=== PATIENT | female | born 1985 | race Two or more races ===

== ENCOUNTER 2018-02-14 19:08 | Emergency (ER) | payer OTHER ==
[2018-02-14] MEDS ORDERED: VENLAFAXINE 37.5 MG TABLET PO STA (19:36)
[2018-02-14] MEDS ORDERED: SODIUM CHLORIDE 0.9% 1,000 ML IV ONE (19:36)
--- NOTE | 2018-02-14 19:40 | ED Physician Documentation ---
History of Present Illness - Stated complaint Stated Complaint: ANXIETY - Chief complaint Chief Complaint: MHE - History obtained from History obtained from: Patient, Family - History of Present Illness Timing: Today Pain level max: 0 Pain level now: 0 Improved by: nothing Worsened by: nothing - Additonal information Additional information: Patient is a 32-year-old female with a long history of anxiety. She states that she has been tapering off her Effexor and last had her Effexor 2 days ago. She was on 37.5 mg once a day, unclear if this was the extended release or immediate release. She states that she has been feeling increased anxiety since that ti me. Took clonazepam and Xanax without relief. Has had diarrhea as well. Feels dehydrated. Is having nausea with some vomiting. Took Zofran prior to arrival. She has been using marijuana to help with her anxiety and appetite. She currently has a PCP in [place] but does not have a psychiatrist. Review of Systems Ten Systems: 10 systems reviewed and negative Constitutional: denies: Fever, Chills Ears: denies: Ear pain Nose: denies: Rhinorrhea / runny nose, Congestion Throat: denies: Sore throat Cardiac: denies: Chest pain / pressure Respiratory: denies: Cough GI: denies: Abdominal Pain, Nausea, Vomiting, Diarrhea Skin: denies: Rash Musculoskeletal: denies: Neck pain, Back pain Neurologic: denies: Headache PD PAST MEDICAL HISTORY - Past Medical History Past Medical History: No - Present Medications Home Medications: Ambulatory Orders Medication Instructions Recorded Confirmed Alprazolam [Xanax] 1 mg PO TID PRN 02/14/18 02/14/18 Ondansetron HCl [Zofran] 8 mg PO Q8H PRN 02/14/18 02/14/18 clonazePAM [Clonazepam] 0.5 mg PO BID 02/14/18 02/14/18 - Allergies Allergies/Adverse Reactions: Allergies Allergy/AdvReac Type Severity Reaction Status Date / Time No Known Drug Allergies Allergy Verified 02/14/18 19:19 PD ED PE NORMAL - Vitals Vital signs reviewed: Yes - General General: Alert and oriented X 3, No acute distress - HEENT HEENT: Moist mucous membranes - Neck Neck: Supple, no meningeal sign - Cardiac Cardiac: RRR, Strong equal pulses - Respiratory Respiratory: No respiratory distress, Clear bilaterally - Abdomen Abdomen: Soft, Non tender, Non distended - Back Back: No spinal TTP - Derm Derm: Warm and dry, No rash - Extremities Extremities: No edema - Neuro Neuro: Alert and oriented X 3 - Psych Psych: Other (anxious) Results - Vitals Vitals: Vital Signs - 24 hr 02/14/18 19:11 Temperature 36.8 C Heart Rate 98 Respiratory 22 Rate Blood Pressure 118/62 O2 Saturation 99 Oxygen O2 Source Room air PD MEDICAL DECISION MAKING - ED course Complexity details: reviewed results, re-evaluated patient, considered differential, d/w patient ED course: Patient feels better after Effexor and Ativan. Feels better after IV fluids. Tolerating p.o. without difficulty. We will have her follow-up with her doctor for further care and recommend tele-psychiatry evaluation in the clinic for medication adjustment. We will have her restart her Effexor at home until she sees her doctor. Patient counseled regarding signs and symptoms for which I believe and urgent re-evaluation would be necessary. Patient with good understanding of and agreement to plan and is comfortable going home at this time This document was made in part using voice recognition software. While efforts are made to proofread this document, sound alike and grammatical errors may occur. - Sepsis Event Vital Signs: Vital Signs - 24 hr 02/14/18 19:11 Temperature 36.8 C Heart Rate 98 Respiratory 22 Rate Blood Pressure 118/62 O2 Saturation 99 Oxygen O2 Source Room air Departure - Departure Disposition: 01 Home, Self Care Clinical Impression: Anxiety Condition: Good Instructions: ED Panic Attack Follow-Up: Tha Garcia PA-C [Primary Care Provider] - Within 1 week Comments: Please restart your Effexor at 37.5 mg by mouth daily. Follow-up with your doctor and asked that you be referred to tele-psychiatry in the [facility] for medication adjustment. Return if you worsen
[2018-02-14] MEDS ORDERED: VENLAFAXINE 37.5 MG TABLET PO ONE (19:45)
[2018-02-14 20:04] LABS: HGB - HEMOGLOBIN 13.8 g/dL (12.0-16.0); LYMPHOCYTES % (AUTO) 14.9 %; MEAN CORPUSCULAR HEMOGLOBIN 30.7 pg (27.0-31.0); MEAN CORPUSCULAR HGB CONC 34.6 g/dL (32.0-36.0); MEAN CORPUSCULAR VOLUME 88.6 fL (81.0-99.0); MEAN PLATELET VOLUME 7.5 fL (7.9-10.8); MONOCYTES # (AUTO) 0.3 10^3/uL (0.0-1.0); MONOCYTES % (AUTO) 4.6 %; NEUTROPHILS # (AUTO) 5.4 10^3/uL (1.5-6.6); NEUTROPHILS % (AUTO) 80.5 %; PLT - PLATELET COUNT 193 10^3/uL (130-450); RED BLOOD COUNT 4.49 10^6/uL (4.20-5.40); RED CELL DISTRIBUTION WIDTH 12.7 % (12.0-15.0); WHITE BLOOD COUNT 6.7 x10^3/uL (4.8-10.8)
[2018-02-14 20:06] LABS: BILIRUBIN,URINE NEGATIVE (NEGATIVE); GLUCOSE, URINE (UA) NEGATIVE (NEGATIVE); KETONES,URINE (UA) NEGATIVE (NEGATIVE); LEUKOCYTE ESTERASE, URINE NEGATIVE (NEGATIVE); NITRITE,URINE NEGATIVE (NEGATIVE); OCCULT BLOOD,URINE SMALL (NEGATIVE); PROTEIN,URINE NEGATIVE (NEGATIVE); UROBILINOGEN,URINE 0.2 (NORMAL) E.U./dL (NORMAL)
[2018-02-14 20:08] LABS: ALBUMIN 4.6 g/dL (3.2-5.5); ALBUMIN/GLOBULIN RATIO 1.4 (1.0-2.2); BILIRUBIN,TOTAL 0.8 mg/dL (0.2-1.0); CALCIUM 9.7 mg/dL (8.5-10.3); CREATININE 0.7 mg/dL (0.4-1.0)
[2018-02-14 20:09] LABS: CLARITY,URINE HAZY (CLEAR); HCG UR QUAL NEGATIVE
[2018-02-14 20:17] LABS: BACTERIA,URINE None Seen /HPF (None Seen); RBC,URINE 0-5 /HPF (0-5); SQUAMOUS EPITHELIAL CELL,UR RARE Squamous (<= Few)
[2018-02-14] MEDS ORDERED: LORazepam 2 MG/ML VIAL IVP STA (20:38)
[2018-02-14] MEDS ORDERED: ONDANSETRON 4 MG/2 ML VIAL IVP STA (21:03)
[2018-02-14 21:35] VITALS: BP 107/61
== END 2018-02-14 21:34 | disposition home or self-care (01) ==
LOC: ED 19:08
DX: F41.9 Anxiety disorder, unspecified (principal); Z79.899 Other long term (current) drug therapy
CPT/HCPCS: 36415; 80053; 81001; 81025; 83690; 85025; 96361; 96374; 96375; 99283; A9270; J2060; 81003; 87086

== ENCOUNTER 2018-03-05 10:16 | Outpatient (CLI) | payer OTHER ==
[2018-03-05 12:51] LABS: HGB - HEMOGLOBIN 13.4 g/dL (12.0-16.0); LYMPHOCYTES # (AUTO) 0.8 10^3/uL (1.5-3.5); LYMPHOCYTES % (AUTO) 14.5 %; MEAN CORPUSCULAR HEMOGLOBIN 30.9 pg (27.0-31.0); MEAN CORPUSCULAR HGB CONC 34.5 g/dL (32.0-36.0); MEAN CORPUSCULAR VOLUME 89.6 fL (81.0-99.0); MEAN PLATELET VOLUME 8.6 fL (7.9-10.8); MONOCYTES # (AUTO) 0.2 10^3/uL (0.0-1.0); MONOCYTES % (AUTO) 4.3 %; NEUTROPHILS # (AUTO) 4.4 10^3/uL (1.5-6.6); NEUTROPHILS % (AUTO) 81.2 %; PLT - PLATELET COUNT 211 10^3/uL (130-450); RED BLOOD COUNT 4.33 10^6/uL (4.20-5.40); RED CELL DISTRIBUTION WIDTH 12.9 % (12.0-15.0); WHITE BLOOD COUNT 5.4 x10^3/uL (4.8-10.8)
[2018-03-05 13:14] LABS: CALCIUM 9.6 mg/dL (8.5-10.3); CREATININE 0.7 mg/dL (0.4-1.0)
== END 2018-03-05 10:17 | disposition home or self-care (01) ==
LOC: LAB.N 10:16
PROVIDERS: ATTEND Physician Assistant Medical
DX: Z86.59 Personal history of other mental and behavioral disorders (principal); F41.1 Generalized anxiety disorder
CPT/HCPCS: 36415; 80048; 84443; 85025

== ENCOUNTER 2019-09-15 14:21 | Outpatient (CLI) | payer OTHER ==
--- NOTE | 2019-09-16 16:43 | Ultrasound Report ---
Reason: ENCOUNTER FOR 1ST TRIMESTER US Procedure Date: 09/15/2019 Accession Number: [id number] / [id number] Procedure: US - OB First Trimester CPT Code: Final Report FULL RESULT: EXAM: FIRST TRIMESTER OBSTETRIC ULTRASOUND (Less than 11 weeks) EXAM DATE: 09/15/2019 03:10 PM. CLINICAL HISTORY: . Dating ultrasound. LMP: 07/19/2019. COMPARISONS: None. TECHNIQUE: Transabdominal and transvaginal ultrasound examination with static image documentation. CLINICAL DATES: EGA 8 weeks 2 days with MARYANNE 04/24/2020 based on LMP. ASSESSMENT: Gestational Sac: Single intrauterine. Mean gestational sac diameter: 41 mm = 9 weeks 4 days. Embryo: CRL (crown-rump length) 23 mm = 9 weeks 0 days. Cardiac activity: 173 beats per minute. Yolk sac: 3 mm. Amniotic fluid: Not accurately assessed at this gestational age. Early placenta: Not visible at this gestational age. Other: No perigestational fluid collection demonstrated. MATERNAL STRUCTURES: Uterus: Anteverted. Unremarkable. Cervix: Closed. Right Ovary/Adnexa: The ovary measures 3.4 x 1.8 x 1.3 cm, volume 4 cc. Unremarkable. Left Ovary/Adnexa: The ovary measures 2.4 x 2.1 x 3.1 cm, volume 7.9 cc. There is a corpus luteum cyst measuring 2.1 x 1.8 x 2.1 cm. Blood flow visualized in left ovary on Doppler. Free Fluid: None. Other: None. IMPRESSION: 1. Single viable intrauterine with ultrasound age 9 weeks 0 days based on crown-rump length. Ultrasound EDC 04/19/2020.. RADIA
== END 2019-09-15 14:22 | disposition home or self-care (01) ==
LOC: DI 14:21
PROVIDERS: ATTEND Midwife
DX: Z34.91 Encounter for supervision of normal pregnancy, unspecified, first trimester (principal)
CPT/HCPCS: 76801; 76817

== ENCOUNTER 2020-04-22 11:41 | Inpatient (IN) | payer OTHER ==
[2020-04-22 13:17] LABS: RUPTURE OF MEMBRANES PLUS POSITIVE (NEGATIVE)
--- NOTE | 2020-04-22 13:24 | HISTORY & PHYSICAL EXAMINATION ---
History of Present Illness - History of Present Illness HPI Comment/Other: CC: wants induction HPI: Care with center midwives, has been maksim painfully for the past 3 days, occuring q1-10min. SVE has been closed and the patient has gotten a few snatches of 15min naps but none otherwise. she is feeling exhausted and requesting augmentation here. 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 No fevers, no cough, no bleeding. Good FM. PMH: obesity, anxiety with panic, anemia, nausea and vomiting, GERD PSH: L4-L5 diskectomy and laminectomy without hardware FH: no malignant hyperthermia Allergies: NKDA Meds: zoloft 100mg daily, zofran, PNV, Fe, Ca, Mag, DHA SH: no t/e/d. Works in [employer] OB: G1=current, complicated by 80# weight gain as it helped to settle her stomach with N/V and GERD. Dating: LMP 07/12/19 --> 04/17/20 final MARYANNE. c/w 9w0d US on 09/15/19-->04/19/20 Labs: GBS neg on 03/17, A-, RI, s/p varicella vax. Neg HIV, RPR, Hep B, GC/CT. Initial Hct 33, repeat 34 in 3rd TM. MCV normal Genetic: declined Anatomy normal, posterior placenta, normal fluid, 43% EFW Rh neg s/p rhogam per pt Vax: s/p flu and Tdap O: AVSS Alert, grimacing, tense Cor RRR no murmurs Lungs CTA bilat Abd soft, nt/nd EFW 6.25# ivana SVE +amine odor. Closed/50/-2/soft/posterior. Vertex. LE with 2+ foot and ankle edema, 1+ to mid-londono DTR 2+ Motor/gait intact Affect anxious. Good eye contact and normal speech and thought patterns. NST Category 1 [place] with UC q3-8. 34yo G1 at 40w 5d by LMP c/w 9w US with prodromal labor for 3d, requesting transfer of care from center to here for augmentation of labor. Well- dated so reasonable request. --GBS neg but that was 5w1d ago--re-swabbed --BV by amine odor on exam--will give IV metronidazole as I suspect that she will not tolerate po with her GI issues. Amnisure test sent to r/o ROM. --N/V and GERD--scheduled pepcid, tums PRN, zofran PRN --Fetus: reassuring NST, vertex, EFW 6.25#, normal anatomy scan --Anxiety with panic: chronic problem well-controlled until this week with zoloft 100mg daily. Hx of panic with disassociation and "blacking out". No panic this . Is affecting her labor with reduced coping ability. Watch for any worsening --Chronic normocytic anemia: recheck PP --Obese with 80# weight gain this preg. Check A1c and TSH . SCD during epidural. --Prodromal labor: pt has not gotten rest. Will try benadryl, oxycodone, and nitrous PRN to see if she can get some rest. May need an early epidural --Induction of labor: not ripe, UC are infrequent enough to do misoprostol. Reviewed options of cook catheter and pitocin and pt prefers the miso. --: watch for anxiety, continue zoloft, rhogam workup. RI, , s/p tdap and flu. UPDATE: ROM test shows rupture of membranes. No current signs of infection. Exact ROM date and time are unknown but likely ROM on 04/18/20. Significantly elevated risk for chorioamnionitis but would treat only PRN findings c/w this. History - Past Medical History Psych: reports: Anxiety - POLST Patient has POLST: No Meds/Allgy - Home Medications Home Medications: Ambulatory Orders Medication Instructions Recorded Confirmed Alprazolam [Xanax] 1 mg PO TID PRN 02/14/18 02/14/18 clonazePAM [Clonazepam] 0.5 mg PO BID 02/14/18 02/14/18 ondansetron HCL [Zofran] 8 mg PO Q8H PRN 02/14/18 02/14/18 - Allergies Allergies/Adverse Reactions: Allergies Allergy/AdvReac Type Severity Reaction Status Date / Time No Known Drug Allergies Allergy Verified 02/14/18 19:19 Exam - Vital Signs Vital Signs: Vital Signs x48h Temp Pulse Resp BP 04/22/20 12:51 98.2 F 04/22/20 12:16 98.2 F 95 22 137/79 H
[2020-04-22] MEDS ORDERED: diphenhydrAMINE INJ 50 MG/ML VIAL IVP PRN ×2 (13:25→15:47)
[2020-04-22] MEDS ORDERED: oxyCODONE 5 MG TABLET PO PRN (13:25)
[2020-04-22] MEDS ORDERED: FAMOTIDINE 20 MG/2 ML VIAL IVP SCH (13:26)
[2020-04-22] MEDS ORDERED: metroNIDAZOLE 500 MG/100 ML 500 MG/100 ML BAG IV SCH (13:26)
[2020-04-22] MEDS ORDERED: CALCIUM CARBONATE CHEW 500 MG TABLET PO PRN (13:26)
[2020-04-22] MEDS ORDERED: SODIUM CHLORIDE FLUSH 0.9% 10 ML SYRINGE IVP PRN (13:27)
[2020-04-22] MEDS ORDERED: METOCLOPRAMIDE 10 MG/2 ML VIAL IVP PRN ×2 (13:27→15:47)
[2020-04-22] MEDS ORDERED: LIDOCAINE-MPF 1% 30 ML VIAL ID PRN (13:27)
[2020-04-22] MEDS ORDERED: OXYTOCIN/SODIUM CHLORIDE 500 ML IV PRN ×2 (13:27)
[2020-04-22] MEDS ORDERED: TRANEXAMIC ACID 1,000 MG in SODIUM CHLORIDE 0.9% 100ML 100 ML IV PRN (13:27)
[2020-04-22] MEDS ORDERED: miSOPROStoL 200 MCG TABLET BC PRN (13:27)
[2020-04-22] MEDS ORDERED: CARBOPROST TROMETHAMINE 250 MCG/ML AMP IM PRN (13:27)
[2020-04-22] MEDS ORDERED: METHYLERGONOVINE 0.2 MG/ML VIAL IM PRN (13:27)
[2020-04-22] MEDS ORDERED: OXYTOCIN 10 UNIT/ML VIAL IM PRN (13:27)
[2020-04-22] MEDS ORDERED: miSOPROStoL 100 MCG TABLET PO SCH (13:30)
[2020-04-22 14:02] LABS: BASOPHILS % (AUTO) 0.3 %; HCT - HEMATOCRIT 36.7 % (37.0-47.0); HGB - HEMOGLOBIN 12.1 g/dL (12.0-16.0); LYMPHOCYTES # (AUTO) 1.2 10^3/uL (1.5-3.5); LYMPHOCYTES % (AUTO) 9.7 %; MEAN CORPUSCULAR HEMOGLOBIN 30.8 pg (27.0-31.0); MEAN CORPUSCULAR VOLUME 93.4 fL (81.0-99.0); MEAN PLATELET VOLUME 10.4 fL (7.9-10.8); MONOCYTES # (AUTO) 0.7 10^3/uL (0.0-1.0); NEUTROPHILS # (AUTO) 9.8 10^3/uL (1.5-6.6); NEUTROPHILS % (AUTO) 82.9 %; PLT - PLATELET COUNT 296 10^3/uL (130-450); RED BLOOD COUNT 3.93 10^6/uL (4.20-5.40); RED CELL DISTRIBUTION WIDTH 13.7 % (12.0-15.0); WHITE BLOOD COUNT 11.8 x10^3/uL (4.8-10.8)
[2020-04-22] MEDS ORDERED: LACTATED RINGERS 1,000 ML IV ONE (14:25)
[2020-04-22] MEDS: LACTATED RINGERS 1,000 ML IV SCH ×2 (14:35→20:17)
[2020-04-22] MEDS: ONDANSETRON 4 MG/2 ML VIAL IVP PRN ×3 (15:08→22:49)
[2020-04-22] MEDS ORDERED: fentaNYL 100 MCG/2 ML VIAL ONE (15:12)
[2020-04-22] MEDS ORDERED: BUPIVACAINE 0.25% PF 10 ML VIAL ONE (15:12)
[2020-04-22] MEDS ORDERED: ROPIVACAINE 0.2% 200 MG/100 ML BAG EP ONE (15:13)
[2020-04-22] MEDS ORDERED: NALOXONE 0.4 MG/ML VIAL IVP PRN (15:47)
[2020-04-22] MEDS ORDERED: NALBUPHINE 10 MG/ML AMP IVP PRN (15:47)
[2020-04-22] MEDS ORDERED: ePHEDrine 50 MG/ML VIAL IVP PRN (15:47)
[2020-04-22] MEDS ORDERED: ROPIVACAINE 0.2% 200 MG/100 ML BAG EP PRN ×2 (15:47→23:19)
[2020-04-22] MEDS ORDERED: ONDANSETRON 4 MG/2 ML VIAL IVP PRN (15:47)
--- NOTE | 2020-04-22 15:47 | ANESTHESIA ---
Pre-Anesthesia VS, & Labs - Diagnosis active labor - Procedure labor epidural Vital Signs: Temp Pulse Resp BP Pulse Ox 36.8 C 95 22 137/79 H 04/22/20 12:51 04/22/20 12:16 04/22/20 12:16 04/22/20 12:16 Height: 5 ft 4 in Weight (kg): 108.862 kg Body Mass Index: 41.1 BMI Classification: Morbidly Obese - Is Patient ?: Yes - Lab Results Current Lab Results: Laboratory Tests 04/22/20 13:30: Blood Type A NEGATIVE, Antibody Screen NEGATIVE 04/22/20 13:30: WBC 11.8 H, RBC 3.93 L, Hgb 12.1, Hct 36.7 L, MCV 93.4, MCH 30.8, MCHC 33.0, RDW 13.7, Plt Count 296, MPV 10.4, Neut # (Auto) 9.8 H, Lymph # (Auto) 1.2 L, [place] # (Auto) 0.7, Eos # (Auto) 0.0, Baso # (Auto) 0.0, Absolute N ucleated RBC 0.00, Nucleated RBC % 0.0 Lab results reviewed: Yes Fish Bones: 04/22/20 13:30 Home Medications and Allergies Active Medications Calcium Carbonate/Glycine (Calcium Carbonate Chew 500 Mg Tablet) 500 mg PO Q6H PRN PRN Reason: Heartburn Carboprost Tromethamine (Carboprost Tromethamine 250 Mcg/Ml Amp) 250 mcg IM Q15M PRN PRN Reason: Step 4: Hemorrhage protocol Stop: 04/27/20 13:28 Diphenhydramine HCl (Diphenhydramine Inj 50 Mg/Ml Vial) 50 mg IVP Q6H PRN PRN Reason: Anxiety Last Admin: 04/22/20 14:39 Dose: 50 mg Documented by: Famotidine (Famotidine 20 Mg/2 Ml Vial) 20 mg IVP BID [facility] Last Admin: 04/22/20 15:00 Dose: 20 mg Documented by: Fentanyl (Fentanyl 100 Mcg/2 Ml Vial) 100 mcg IVP Q1H PRN PRN Reason: PAIN Metronidazole (Flagyl 500 Mg/100 Ml) 500 mg in 100 mls @ 100 mls/hr IV BID [facility] Last Admin: 04/22/20 14:35 Dose: 100 mls/hr Documented by: Lactated Ringer's (Lr) 1,000 mls @ 75 mls/hr IV .[id number] [facility] Last Admin: 04/22/20 14:35 Dose: 75 mls/hr Documented by: Oxytocin/Sodium Chloride (Pitocin/Sodium Chloride) 500 mls @ 999 mls/hr IV PRN PRN; Protocol PRN Reason: POST- HEMORR PREVENTION Stop: 04/27/20 13:28 Tranexamic Acid 1,000 mg/ (Sodium Chloride) 110 mls @ 660 mls/hr IV .ONCE PRN PRN Reason: EBL >1200mL and within 3hr Stop: 04/27/20 13:28 Oxytocin/Sodium Chloride (Pitocin/Sodium Chloride) 500 mls @ 999 mls/hr IV PRN PRN; Protocol PRN Reason: POST- HEMORR PREVENTION Lactated Ringer's (Lr) 1,000 mls @ 250 mls/hr IV ONCE ONE Stop: 04/22/20 18:24 Lidocaine HCl (Lidocaine-Mpf 1% 30 Ml Vial) 30 ml ID .ONCE PRN PRN Reason: PERINEAL REPAIR Stop: 04/27/20 13:28 Methylergonovine Maleate (Methylergonovine 0.2 Mg/Ml Vial) 0.2 mg IM .ONCE PRN PRN Reason: Step 2: Hemorrhage protocol Stop: 04/27/20 13:28 Metoclopramide HCl (Metoclopramide 10 Mg/2 Ml Vial) 10 mg IVP Q6H PRN PRN Reason: Nausea / Vomiting Misoprostol (Misoprostol 200 Mcg Tablet) 800 mcg BC .ONCE PRN PRN Reason: Step 3: Hemorrhage protocol Stop: 04/27/20 13:28 Misoprostol (Misoprostol 100 Mcg Tablet) 25 mcg PO Q4HR [facility] Last Admin: 04/22/20 13:56 Dose: 25 mcg Documented by: Ondansetron HCl (Ondansetron 4 Mg/2 Ml Vial) 4 mg IVP Q4HR PRN PRN Reason: Nausea / Vomiting Last Admin: 04/22/20 15:08 Dose: 4 mg Documented by: Oxycodone HCl (Oxycodone 5 Mg Tablet) 10 mg PO Q4HR PRN PRN Reason: PAIN Last Admin: 12/12/20 14:39 Dose: 10 mg Documented by: Oxytocin (Oxytocin 10 Unit/Ml Vial) 10 unit IM .ONCE PRN PRN Reason: Step one: If no IV access Stop: 04/27/20 13:28 Sertraline HCl (Sertraline 50 Mg Tablet) 100 mg PO DAILY SU[facility] Sodium Chloride (Sodium Chloride Flush 0.9% 10 Ml Syringe) 10 ml IVP 0100,0900,1700 SUGAR Sodium Chloride (Sodium Chloride Flush 0.9% 10 Ml Syringe) 10 ml IVP PRN PRN PRN Reason: NEEDED PER PROVIDER ORDERS Alprazolam [Xanax] 1 mg PO TID PRN 02/14/18 clonazePAM [Clonazepam] 0.5 mg PO BID 02/14/18 ondansetron HCL [Zofran] 8 mg PO Q8H PRN 02/14/18 Allergies/Adverse Reactions: Allergies Allergy/AdvReac Type Severity Reaction Status Date / Time No Known Drug Allergies Allergy Verified 02/14/18 19:19 Anes History & Medical History - Anesthetic History Anesthesia Complications: reports: No previous complications Family history of Anesthesia Complications: Denies Family history of Malignant Hyperthermia: Denies - Medical History Musculoskeletal: reports: Chronic back pain, Other (previous back surgery L4-5.) Smoking Status: Never smoker Exam General: Alert, Oriented x3, Cooperative, No acute distress Dental: WNL Mouth Openin Fingerbreadth Neck Mobility: Normal Mallampati classification: II Plan Anesthesia Type: Epidural Consent for Procedure(s) Verified and Reviewed: Yes Code Status: Attempt Resuscitation ASA classification: 2-Mild systemic disease Is this case an emergency?: No
[2020-04-22] MEDS ORDERED: SODIUM CHLORIDE FLUSH 0.9% 10 ML SYRINGE IVP SCH (17:00)
--- NOTE | 2020-04-22 18:24 | PROVIDER PROGRESS NOTE ---
Subjective - Subjective Subjective: Called by RN due to a string of late decelerations S: comfortable, not feeling contractions, able to rest but not to sleep O: AVSS, maternal HR baseline about 95bpm SVE 1/100/-1, was able to stretch her to 4/100/-1 with almost no resistance. Soft and mid. Adequate pelvis. IUPC placed without difficulty after verbal consent NST category 1 overall. Starting at 16:50 had a string of late decelerations x4. Resolved with position changes, O2, and 500cc fluid bolus. Moderate LTV has been present throughout. Patient was having accelerations even in the periods between her lates. Initial MVU about 80 A/P: 34yo G1 at 40w5d augmented for prodromal labor post-dates, SROM of unknown duration but possibly 4d ago. Has had occasional late decelerations following her epidural but has been normotensive during that time. Have resolved with usual mgmt. Excellent variability and accels have been preserved. Will move from miso to pit so that medicine can be managed PRN decels. Will manage pitocin for goal MVU 200-250. --No evidence of chorio. AVSS and WBC was 12. Normal baseline heart rate. --Obese: LE edema improved a bit with MIGUEL hose. SCDs applied. --GBS unknown and pending, was neg >5w ago --Anxiety under control now with good pain control. Continue zoloft 100mg. --Anemia mild with starting Hct of 36.7 --BV dx'ed by amine odor, tolerated flagyl without problems --GERD, N/V asymptomatic with scheduled pepcid --Fetus: reassuring NST, vertex, EFW 6.25#, normal anatomy scan Objective - Vital Signs/Intake & Output Vital Signs: Vital Signs x48h Temp Pulse Resp BP 04/22/20 12:51 98.2 F 04/22/20 12:16 98.2 F 95 22 137/79 H Intake & Output: Intake & Output 04/19/20 04/20/20 04/21/20 04/22/20 23:59 23:59 23:59 23:59 Output Total 500 Balance -500 - Lab Results Fish Bones: 04/22/20 13:30 Other Labs: Lab Results x24hrs 04/22/20 04/22/20 04/22/20 Range/Units 13:30 13:30 13:00 WBC 11.8 H (4.8-10.8) x10^3/uL RBC 3.93 L (4.20-5.40) 10^6/uL Hgb 12.1 (12.0-16.0) g/dL Hct 36.7 L (37.0-47.0) % MCV 93.4 (81.0-99.0) fL MCH 30.8 (27.0-31.0) pg MCHC 33.0 (32.0-36.0) g/dL RDW 13.7 (12.0-15.0) % Plt Count 296 (130-450) 10^3/uL MPV 10.4 (7.9-10.8) fL Neut # (Auto) 9.8 H (1.5-6.6) 10^3/uL Lymph # (Auto) 1.2 L (1.5-3.5) 10^3/uL [place] # (Auto) 0.7 (0.0-1.0) 10^3/uL Eos # (Auto) 0.0 (0.0-0.7) 10^3/uL Baso # (Auto) 0.0 (0.0-0.1) 10^3/uL Absolute Nucleated RBC 0.00 x10^3/uL Nucleated RBC % 0.0 /100WBC Membranes Rupture POSITIVE A (NEGATIVE) Blood Type A NEGATIVE Antibody Screen NEGATIVE
[2020-04-22] MEDS ORDERED: OXYTOCIN/SODIUM CHLORIDE 500 ML IV SCH (19:00)
--- NOTE | 2020-04-22 20:22 | PROVIDER PROGRESS NOTE ---
Subjective - Subjective Subjective: Called to bedside by RN for decels S: feeling comfortable, no issues O: AVSS, maternal HR baseline 75 SVE unchanged 4/100/-1 NST baseline 140BPM, moderate variability, accels throughout. Late decel at 19:16 associated with twinning contraction Early decel 19:38 Late decel 19:38 associated with quadrupled contraction [place] baseline not reading well--most in negative range. MVU 200 at 1921 but baseline neg. A/P: 34yo G1 at 40w5d with augmentation for SROM for up to 4d (color unknown) and prodromal labor. Pit was up to 4 when pt began having late decels. Baseline was reading negative and many decels were associated with clustered contractions. Will keep pit off, fix baseline, and monitor MVU. Resume pit only PRN inadequate MVU. No SVE change but patient has not been adequate for an hour. Anticipate but will watch strip closely. Perform frequent position changes to facilitate passage. No evidence of chorio, tolerating labor well, SCD and feng in place. Objective - Vital Signs/Intake & Output Vital Signs: Vital Signs x48h Temp Pulse Resp BP 04/22/20 12:51 98.2 F 04/22/20 12:16 98.2 F 95 22 137/79 H Intake & Output: Intake & Output 04/19/20 04/20/20 04/21/20 04/22/20 23:59 23:59 23:59 23:59 Intake Total 3.333 Output Total 500 Balance -496.667 - Lab Results Fish Bones: 04/22/20 13:30 Other Labs: Lab Results x24hrs 04/22/20 04/22/20 04/22/20 Range/Units 13:30 13:30 13:00 WBC 11.8 H (4.8-10.8) x10^3/uL RBC 3.93 L (4.20-5.40) 10^6/uL Hgb 12.1 (12.0-16.0) g/dL Hct 36.7 L (37.0-47.0) % MCV 93.4 (81.0-99.0) fL MCH 30.8 (27.0-31.0) pg MCHC 33.0 (32.0-36.0) g/dL RDW 13.7 (12.0-15.0) % Plt Count 296 (130-450) 10^3/uL MPV 10.4 (7.9-10.8) fL Neut # (Auto) 9.8 H (1.5-6.6) 10^3/uL Lymph # (Auto) 1.2 L (1.5-3.5) 10^3/uL [place] # (Auto) 0.7 (0.0-1.0) 10^3/uL Eos # (Auto) 0.0 (0.0-0.7) 10^3/uL Baso # (Auto) 0.0 (0.0-0.1) 10^3/uL Absolute Nucleated RBC 0.00 x10^3/uL Nucleated RBC % 0.0 /100WBC Membranes Rupture POSITIVE A (NEGATIVE) Blood Type A NEGATIVE Antibody Screen NEGATIVE
[2020-04-22] MEDS ORDERED: LIDOCAINE 1%-EPI 1:100000 30 ML MDV ONE (23:10)
[2020-04-23] MEDS ORDERED: AMPICILLIN 2 GM in SODIUM CHLORIDE 0.9% MINIBAG 100 ML IV SCH (02:18)
[2020-04-23] MEDS: LACTATED RINGERS 1,000 ML IV SCH (02:20)
[2020-04-23] MEDS ORDERED: GENTAMICIN 80MG VIAL 400 MG in SODIUM CHLORIDE 0.9% 100ML 100 ML IV SCH (02:21)
[2020-04-23] MEDS ORDERED: CLINDAMYCIN 900 MG/50 ML 50 ML IV SCH (02:30)
--- NOTE | 2020-04-23 02:32 | PROVIDER PROGRESS NOTE ---
Subjective - Subjective Subjective: S: Comfortable NST: Variable decel 0003 and 0037 Period of marked variability from 0057 to 0140 Change in baseline to tachycardia baseline 170 at 0157 SVE unchanged A/P: 1) New chorioamnionitis dx with new tachycardia + existing malodorous vagina: stop flagyl. Start amp, gent, clinda 2) Intermittent category 2 tracing when MVU are adequate, moderate LTV has been restored after hands and knees. May reflect intolerance of adequate contractions. 3) Little SVE change (from 4 to 5) over the past 6h with about 75% of that time in adequate contraction pattern with MVU >200. Have been doing multiple position changes. Discussed recommendation of primary , patient is amenable. OR team called. Objective - Vital Signs/Intake & Output Intake & Output: Intake & Output 04/20/20 04/21/20 04/22/20 04/23/20 23:59 23:59 23:59 23:59 Intake Total 2103.333 Output Total 500 Balance 1603.333 - Lab Results Fish Bones: 04/22/20 13:30 Other Labs: Lab Results x24hrs 04/22/20 04/22/20 04/22/20 Range/Units 13:30 13:30 13:00 WBC 11.8 H (4.8-10.8) x10^3/uL RBC 3.93 L (4.20-5.40) 10^6/uL Hgb 12.1 (12.0-16.0) g/dL Hct 36.7 L (37.0-47.0) % MCV 93.4 (81.0-99.0) fL MCH 30.8 (27.0-31.0) pg MCHC 33.0 (32.0-36.0) g/dL RDW 13.7 (12.0-15.0) % Plt Count 296 (130-450) 10^3/uL MPV 10.4 (7.9-10.8) fL Neut # (Auto) 9.8 H (1.5-6.6) 10^3/uL Lymph # (Auto) 1.2 L (1.5-3.5) 10^3/uL [place] # (Auto) 0.7 (0.0-1.0) 10^3/uL Eos # (Auto) 0.0 (0.0-0.7) 10^3/uL Baso # (Auto) 0.0 (0.0-0.1) 10^3/uL Absolute Nucleated RBC 0.00 x10^3/uL Nucleated RBC % 0.0 /100WBC Membranes Rupture POSITIVE A (NEGATIVE) Blood Type A NEGATIVE Antibody Screen NEGATIVE
[2020-04-23] MEDS ORDERED: fentaNYL 100 MCG/2 ML VIAL IVP ONE (03:30)
[2020-04-23] MEDS ORDERED: MORPHINE PF 5 MG/10 ML VIAL EP ONE (03:30)
[2020-04-23] MEDS ORDERED: LIDOCAINE 2%-EPI 1:100000 20 ML MDV ONE (03:41)
[2020-04-23] MEDS ORDERED: LACTATED RINGERS 1,000 ML IV ONE (04:46)
[2020-04-23] MEDS ORDERED: HYDROmorphone 0.5 MG/0.5 ML SYRINGE IVP PRN (04:52)
[2020-04-23] MEDS ORDERED: ATROPINE ABBOJECT 1 MG/10 ML SYRINGE IVP PRN (04:52)
[2020-04-23] MEDS ORDERED: METOCLOPRAMIDE 10 MG/2 ML VIAL IVP PRN (04:52)
[2020-04-23] MEDS ORDERED: MORPHINE 2 MG/ML CARPUJECT IVP PRN (04:52)
[2020-04-23] MEDS ORDERED: ONDANSETRON 4 MG/2 ML VIAL IVP PRN (04:52)
[2020-04-23] MEDS ORDERED: fentaNYL 100 MCG/2 ML VIAL IVP PRN (04:52)
[2020-04-23] MEDS ORDERED: ePHEDrine 50 MG/ML VIAL IVP PRN (04:52)
[2020-04-23] MEDS ORDERED: NALOXONE 0.4 MG/ML VIAL IVP PRN (04:52)
[2020-04-23] MEDS ORDERED: ACETAMINOPHEN 1,000 MG/100 ML 100 ML IV ONE (04:54)
[2020-04-23] MEDS ORDERED: LACTATED RINGERS 1,000 ML IV SCH (05:00)
--- NOTE | 2020-04-23 05:00 | ANESTHESIA POST OP EVALUATION ---
Anesthesia Post Eval - Post Anesthesia Eval Vitals: Last Vital Signs Temp 38.2 C H 04/23/20 04:46 Pulse 88 04/23/20 04:46 Resp 16 04/23/20 04:46 BP 143/74 H 04/23/20 04:46 Pulse Ox 96 04/23/20 04:46 CV Function Including HR & BP: positive: Stable Pain Control: positive: Satisfactory Nausea & Vomiting: positive: Negative Mental Status: positive: Baseline Respiratory Status: Airway Patent Hydration Status: Satisfactory Anesthesia Complications: positive: None
[2020-04-23] MEDS: fentaNYL 100 MCG/2 ML VIAL IVP PRN ×2 (05:11→05:18)
[2020-04-23] MEDS ORDERED: HYDROCORTISONE 1% CREAM 28 GM TUBE PR PRN (05:28)
[2020-04-23] MEDS ORDERED: ONDANSETRON ODT 4 MG TABLET TL PRN (05:28)
[2020-04-23] MEDS ORDERED: diphenhydrAMINE 25 MG CAPSULE PO PRN (05:28)
[2020-04-23] MEDS ORDERED: SODIUM CHLORIDE FLUSH 0.9% 10 ML SYRINGE IVP PRN (05:28)
[2020-04-23] MEDS ORDERED: WITCH HAZEL/GLYCERIN 1 PAD TOP PRN (05:28)
--- NOTE | 2020-04-23 05:39 | OPERATIVE REPORT ---
Operative Report - General Admit Date: 04/22/20 Procedure Performed: dos 04/23/20 Preop: chorio, failure to progress, intolerance Postop; same Procedure: primary LTCS Surg: Marcos Assist: David LOMBARDI Anesthesia: epidural EBL 500cc IVF 900cc UOP 700cc Complications: none Dispo: labor room Specimens: cord blood for typing. Cord gasses. Placenta to pathology Findings: liveborn male, 8, 6#14oz, RDS, mec, normal maternal anatomy
[2020-04-23] MEDS: ONDANSETRON 4 MG/2 ML VIAL IVP PRN (05:50)
[2020-04-23 07:50] LABS: B. PARAPERTUSSIS- RESP PCR PAN NOT DETECTED; B. PERTUSSIS- RESP PCR PANEL NOT DETECTED; C. PNEUMONIAE- RESP PCR PANEL NOT DETECTED; CORONAVIRUS 229E-RESP PCR NOT DETECTED; CORONAVIRUS HKU1-RESP PCR NOT DETECTED; CORONAVIRUS NL63-RESP PCR NOT DETECTED; CORONAVIRUS OC43-RESP PCR NOT DETECTED; HUMAN METAPNEUMOVIRUS NOT DETECTED; INFLUENZA A- RESP PCR PANEL NOT DETECTED; INFLUENZA B - RESP PCR PANEL NOT DETECTED; M. PNEUMONIAE- RESP PCR PANEL NOT DETECTED; PARAINFLUENZA VIRUS 1 NOT DETECTED; PARAINFLUENZA VIRUS 2 NOT DETECTED; PARAINFLUENZA VIRUS 3 NOT DETECTED; PARAINFLUENZA VIRUS 4 NOT DETECTED; RHINOVIRUS/ENTEROVIRUS NOT DETECTED; RSV- RESP PCR PANEL NOT DETECTED; SARS-CoV-2 -RESP PCR PANEL NOT DETECTED
[2020-04-23] MEDS ORDERED: SERTRALINE 50 MG TABLET PO SCH (09:00)
[2020-04-23] MEDS: DOCUSATE SODIUM 100 MG CAPSULE PO SCH ×2 (09:06→21:54)
[2020-04-23] MEDS: SERTRALINE 50 MG TABLET PO SCH (09:06)
[2020-04-23] MEDS: ACETAMINOPHEN 500 MG TABLET PO SCH ×2 (09:06→17:22)
[2020-04-23] MEDS: KETOROLAC 30 MG/ML VIAL IVP SCH ×3 (11:02→23:59)
[2020-04-23] MEDS: SODIUM CHLORIDE FLUSH 0.9% 10 ML SYRINGE IVP SCH ×2 (11:08→17:33)
[2020-04-23] MEDS ORDERED: RHO(D) IMMUNE GLOBULIN 300 MCG SYRINGE IVP ONE (12:21)
[2020-04-23 15:28] LABS: BASOPHILS % (AUTO) 0.2 %; EOSINOPHILS % (AUTO) 0.1 %; HCT - HEMATOCRIT 33.6 % (37.0-47.0); HGB - HEMOGLOBIN 11.1 g/dL (12.0-16.0); LYMPHOCYTES # (AUTO) 1.4 10^3/uL (1.5-3.5); LYMPHOCYTES % (AUTO) 8.8 %; MEAN CORPUSCULAR HEMOGLOBIN 31.2 pg (27.0-31.0); MEAN CORPUSCULAR VOLUME 94.4 fL (81.0-99.0); MEAN PLATELET VOLUME 9.9 fL (7.9-10.8); MONOCYTES # (AUTO) 1.1 10^3/uL (0.0-1.0); MONOCYTES % (AUTO) 6.7 %; NEUTROPHILS # (AUTO) 13.6 10^3/uL (1.5-6.6); NEUTROPHILS % (AUTO) 83.6 %; PLT - PLATELET COUNT 231 10^3/uL (130-450); RED BLOOD COUNT 3.56 10^6/uL (4.20-5.40); RED CELL DISTRIBUTION WIDTH 13.7 % (12.0-15.0); WHITE BLOOD COUNT 16.3 x10^3/uL (4.8-10.8)
--- NOTE | 2020-04-23 16:41 | OPERATIVE REPORT ---
DATE OF SERVICE: 04/23/2020 Physician: Domitila Rodríguez MD PREOPERATIVE DIAGNOSES 1. Intrauterine at 40 weeks 5 days. 2. Chorioamnionitis. 3. Failure to progress. 4. intolerance of labor. POSTOPERATIVE DIAGNOSES 1. Intrauterine at 40 weeks 5 days. 2. Chorioamnionitis. 3. Failure to progress. 4. intolerance of labor. 5. Thick meconium-stained fluid. PROCEDURE PERFORMED: Primary low-transverse section. SURGEON: Domitila Rodríguez MD [employer] CLINICAL PROGRAMMER: Maria Fernanda Hernandez CNM. She was required to obtain proper visualization and retraction required to do this surgery. ANESTHESIA: Epidural. ESTIMATED BLOOD LOSS: 500 mL. URINE OUTPUT: 700 mL. INTRAVENOUS FLUIDS: 900 mL. COUNTS: Correct x2. COMPLICATIONS: None apparent. DISPOSITION: Stable to the room. PROPHYLAXIS: SCDs and MIGUEL hose to the bilateral lower extremities. The patient received ampicillin and clindamycin prior to arrival in the operating room. Gentamicin was started in the operating room. SPECIMENS: Cord blood for typing, cord gases, and placenta to pathology. FINDINGS 1. Thick meconium-stained fluid. 2. Liveborn male, weight 6 pounds 14 ounces, Apgars 8 at one minute and 9 at five minutes with respiratory distress syndrome. 3. Umbilical cord gases; artery pH 7.23, base excess of -4.1. Venous pH of 7.31, base excess of -3.9. 4. Normal-appearing uterus, ovaries, and fallopian tubes. COUNSELING: The patient had intended to home and reported leaking of fluid 4 days ago. She was evaluated by her plaster block layer and was deemed to be not ruptured by a normal Nitrazine test. She had been soaking through a few pads a day. A ROM plus test was positive here. There was also no resistance with IUPC placement, both consistent with rupture of membranes, possibly for up to 4 days. Initially, she did not have chorioamnionitis as her only symptom was malodorous vaginal discharge. For this, she got treated with Flagyl. However, the baby did develop tachycardia and at that point, she was diagnosed with chorioamnionitis and treated with ampicillin, gentamicin, and clindamycin. The patient required augmentation of labor. This was initiated with misoprostol and then transitioned to Pitocin. Her maximum dose of Pitocin was 4 milliunits per minute. Using an IUPC we were able to view adequate contractions with MVUs more than 200 for hours. Her cervical examination was closed on admission. It was 4 cm at the time of IUPC placement, which was 4 hours after her misoprostol dose. She dilated to 5 cm at her next exam. However, she did not progress past that point despite adequate contractions. The fetus developed periods of category 2 tracing that included late decelerations, variable decelerations, and ultimately the development of tachycardia. She had a brief period of marked variability, but for the most part her variability was moderate. Accelerations were seen throughout her labor. The patient was counseled that because of the failure to progress and intolerance of labor, a primary was recommended. The patient was very amenable to this recommendation; the procedure and recovery were briefly explained. Risks including, but not limited to bleeding, infection, trauma to local organs, anesthesia complications, and problems with future pregnancies because of scar tissue in the uterus were reviewed. All questions were answered and the operative consent was signed. Notably, the patient is a Religious and declines blood products. DESCRIPTION OF PROCEDURE: The patient was brought to the operating room where her existing epidural was bolused. Her SCDs and Lemus had been placed in her labor room. She was placed in a left tilt. She was prepped and draped in the usual sterile fashion. After a normal skin test, a scalpel was used to make a transverse Pfannenstiel skin incision 3 cm superior to the pubic symphysis. This was carried down to the fascia, which was nicked in the midline bilaterally. The fascial incision was extended laterally, sharply. Kochers were placed on the inferior margin of the fascial incision and the fascia was bluntly and sharply dissected off of the underlying rectus. The same was then performed superiorly. The peritoneum was sharply entered and the cavity was stretched with good room resulting. A bladder retractor was placed. A scalpel was used to make a transverse incision in the lower uterine segment. The uterus was entered with a finger. The uterine incision was extended laterally by applying caudal and cranial traction. The surgeon's hand was placed in the uterine cavity and the head was elevated and then delivered with the assistance of fundal pressure. There was no nuchal cord. Thick meconium- stained fluid was present. The baby immediately had a good grimace and good tone and so we waited 30 seconds before cutting and clamping the cord. The baby was handed to the financial foundations representative in waiting. A segment of cord was saved for cord gases, which were normal. Cord blood for typing was then obtained. The placenta was delivered with external uterine massage. Curetting of the uterus revealed no adherent membranes. The uterus was externalized. Bleeders were clamped with ring forceps. The uterine incision was closed with a running layer of 0 Vicryl, a second imbricating layer was performed. There was some oozers in the midline that were oversewn with 0 Vicryl. During the suturing, the serosa over the right uterine vein was nicked. Pressure was applied to the area for 60 seconds with no further bleeding seen. The area was examined repeatedly throughout the case without further bleeding seen. The area was visualized for a minute after replacement of the uterus into the abdominal cavity without further bleeding seen. Both gutters were irrigated with a wet lap. Bleeding on the uterus, fascia, and rectus was hemostatic. The fascia was closed with a running layer of 0 Vicryl going from end-to-end. The subcutaneous tissues were copiously irrigated and then reapproximated with 2-0 Vicryl interrupted sutures. The skin was closed with a running 4-0 Monocryl. Dermabond was then applied. Fundal massage had been performed throughout the procedure and the patient had excellent tone. The blood and clots were wiped from her body. She was returned to her labor room for recovery. Unfortunately, the baby did develop respiratory distress syndrome and will need to be transported to NICU facility. The parents are coping well with this news. TD: 04/23/2020 05:54 MAI
[2020-04-23 21:34] LABS: ESTIMATED AVERAGE GLUCOSE 105 mg/dL (70-100); HEMOGLOBIN A1c% 5.3 % (4.27-6.07)
[2020-04-23] MEDS: oxyCODONE 5 MG TABLET PO PRN (21:54)
[2020-04-24] MEDS: ACETAMINOPHEN 500 MG TABLET PO SCH ×3 (01:27→17:29)
[2020-04-24] MEDS: IBUPROFEN 600 MG TABLET PO SCH ×3 (05:55→18:13)
--- NOTE | 2020-04-24 07:50 | PROVIDER PROGRESS NOTE ---
Subjective - Subjective Subjective: S: eating, ambulating, pumping, urinating well. No heavy bleeding. Mood is OK. No WILLARD, visual changes, or upper abd pain. Baby is doing well in [place] O: occasional elevated BP to mild range, most recent BP is normal Alert, smiling, NAD Abd soft, nt/nd Fundus firm at U Incision c/d/i without erythema or induration No LE edema DTR 1+ A/P: 34yo P1 POD 1.5 s/p primary for failure to progress, intolerance complicated by chorio and SROM for 4d. Elevated BP yesterday, no sx, normotensive in labor. Will get labs and go from there. Otherwise routine care with BP monitoring today. Change VS to q2h while awake. Objective - Vital Signs/Intake & Output Vital Signs: Vital Signs x48h Temp Pulse Resp BP Pulse Ox 04/24/20 05:43 98.2 F 62 16 114/58 L 98 04/24/20 00:00 98.1 F 67 18 120/69 97 Intake & Output: Intake & Output 04/21/20 04/22/20 04/23/20 04/24/20 23:59 23:59 23:59 23:59 Intake Total 2103.333 620 Output Total 500 1510 500 Balance 1603.333 -1510 120 - Lab Results Fish Bones: 04/23/20 15:20 Other Labs: Lab Results x24hrs 04/23/20 04/23/20 04/23/20 Range/Units 15:20 15:20 15:20 WBC 16.3 H (4.8-10.8) x10^3/uL RBC 3.56 L (4.20-5.40) 10^6/uL Hgb 11.1 L (12.0-16.0) g/dL Hct 33.6 L (37.0-47.0) % MCV 94.4 (81.0-99.0) fL MCH 31.2 H (27.0-31.0) pg MCHC 33.0 (32.0-36.0) g/dL RDW 13.7 (12.0-15.0) % Plt Count 231 (130-450) 10^3/uL MPV 9.9 (7.9-10.8) fL Neut # (Auto) 13.6 H (1.5-6.6) 10^3/uL Lymph # (Auto) 1.4 L (1.5-3.5) 10^3/uL Wagoner # (Auto) 1.1 H (0.0-1.0) 10^3/uL Eos # (Auto) 0.0 (0.0-0.7) 10^3/uL Baso # (Auto) 0.0 (0.0-0.1) 10^3/uL Absolute Nucleated RBC 0.00 x10^3/uL Nucleated RBC % 0.0 /100WBC Estimat Average Glucose 105 H (70-100) mg/dL Hemoglobin A1c % 5.3 (4.27-6.07) % TSH 2.35 (0.34-5.60) uIU/mL Nasal Adenovirus (PCR) Nasal B. parapertussis DNA (PCR) Nasal Coronavir 229E PCR Nasal Coronavir HKU1 PCR Nasal Coronavir NL63 PCR Nasal Coronavir OC43 PCR Nasal Enterovir/Rhinovir PCR Nasal Influenza B PCR Nasal Influenza A PCR Nasal Parainfluen 1 PCR Nasal Parainfluen 2 PCR Nasal Parainfluen 3 PCR Nasal Parainfluen 4 PCR Nasal RSV (PCR) Nasal B.pertussis DNA PCR Nasal C.pneumoniae (PCR) Ulises Human Metapneumo PCR Nasal M.pneumoniae (PCR) Nasal SARS-CoV-2 (PCR) Coronavirus (PCR) Group B Strep (PCR) (NEGATIVE) Blood Type Weak D (Du) Maternal Bleed (NEGATIVE) 04/23/20 04/23/20 04/22/20 Range/Units 08:22 04:23 15:50 WBC (4.8-10.8) x10^3/uL RBC (4.20-5.40) 10^6/uL Hgb (12.0-16.0) g/dL Hct (37.0-47.0) % MCV (81.0-99.0) fL MCH (27.0-31.0) pg MCHC (32.0-36.0) g/dL RDW (12.0-15.0) % Plt Count (130-450) 10^3/uL MPV (7.9-10.8) fL Neut # (Auto) (1.5-6.6) 10^3/uL Lymph # (Auto) (1.5-3.5) 10^3/uL Wagoner # (Auto) (0.0-1.0) 10^3/uL Eos # (Auto) (0.0-0.7) 10^3/uL Baso # (Auto) (0.0-0.1) 10^3/uL Absolute Nucleated RBC x10^3/uL Nucleated RBC % /100WBC Estimat Average Glucose (70-100) mg/dL Hemoglobin A1c % (4.27-6.07) % TSH (0.34-5.60) uIU/mL Nasal Adenovirus (PCR) NOT DETECTED Nasal B. parapertussis DNA (PCR) NOT DETECTED Nasal Coronavir 229E PCR NOT DETECTED Nasal Coronavir HKU1 PCR NOT DETECTED Nasal Coronavir NL63 PCR NOT DETECTED Nasal Coronavir OC43 PCR NOT DETECTED Nasal Enterovir/Rhinovir PCR NOT DETECTED Nasal Influenza B PCR NOT DETECTED Nasal Influenza A PCR NOT DETECTED Nasal Parainfluen 1 PCR NOT DETECTED Nasal Parainfluen 2 PCR NOT DETECTED Nasal Parainfluen 3 PCR NOT DETECTED Nasal Parainfluen 4 PCR NOT DETECTED Nasal RSV (PCR) NOT DETECTED Nasal B.pertussis DNA PCR NOT DETECTED Nasal C.pneumoniae (PCR) NOT DETECTED Ulises Human Metapneumo PCR NOT DETECTED Nasal M.pneumoniae (PCR) NOT DETECTED Nasal SARS-CoV-2 (PCR) NOT DETECTED Coronavirus (PCR) NEGATIVE Group B Strep (PCR) (NEGATIVE) Blood Type A NEGATIVE Weak D (Du) WEAK-D NEGATIVE Maternal Bleed NEGATIVE (NEGATIVE) 04/22/20 Range/Units 15:50 WBC (4.8-10.8) x10^3/uL RBC (4.20-5.40) 10^6/uL Hgb (12.0-16.0) g/dL Hct (37.0-47.0) % MCV (81.0-99.0) fL MCH (27.0-31.0) pg MCHC (32.0-36.0) g/dL RDW (12.0-15.0) % Plt Count (130-450) 10^3/uL MPV (7.9-10.8) fL Neut # (Auto) (1.5-6.6) 10^3/uL Lymph # (Auto) (1.5-3.5) 10^3/uL Wagoner # (Auto) (0.0-1.0) 10^3/uL Eos # (Auto) (0.0-0.7) 10^3/uL Baso # (Auto) (0.0-0.1) 10^3/uL Absolute Nucleated RBC x10^3/uL Nucleated RBC % /100WBC Estimat Average Glucose (70-100) mg/dL Hemoglobin A1c % (4.27-6.07) % TSH (0.34-5.60) uIU/mL Nasal Adenovirus (PCR) Nasal B. parapertussis DNA (PCR) Nasal Coronavir 229E PCR Nasal Coronavir HKU1 PCR Nasal Coronavir NL63 PCR Nasal Coronavir OC43 PCR Nasal Enterovir/Rhinovir PCR Nasal Influenza B PCR Nasal Influenza A PCR Nasal Parainfluen 1 PCR Nasal Parainfluen 2 PCR Nasal Parainfluen 3 PCR Nasal Parainfluen 4 PCR Nasal RSV (PCR) Nasal B.pertussis DNA PCR Nasal C.pneumoniae (PCR) Ulises Human Metapneumo PCR Nasal M.pneumoniae (PCR) Nasal SARS-CoV-2 (PCR) Coronavirus (PCR) Group B Strep (PCR) NEGATIVE (NEGATIVE) Blood Type Weak D (Du) Maternal Bleed (NEGATIVE)
[2020-04-24] MEDS: KETOROLAC 30 MG/ML VIAL IVP SCH (08:35)
[2020-04-24 08:49] LABS: BASOPHILS % (AUTO) 0.2 %; EOSINOPHILS # (AUTO) 0.1 10^3/uL (0.0-0.7); EOSINOPHILS % (AUTO) 0.4 %; HCT - HEMATOCRIT 32.2 % (37.0-47.0); HGB - HEMOGLOBIN 10.3 g/dL (12.0-16.0); LYMPHOCYTES # (AUTO) 1.4 10^3/uL (1.5-3.5); LYMPHOCYTES % (AUTO) 11.5 %; MEAN CORPUSCULAR HEMOGLOBIN 30.7 pg (27.0-31.0); MEAN CORPUSCULAR VOLUME 96.1 fL (81.0-99.0); MEAN PLATELET VOLUME 9.9 fL (7.9-10.8); MONOCYTES # (AUTO) 0.7 10^3/uL (0.0-1.0); MONOCYTES % (AUTO) 5.5 %; NEUTROPHILS # (AUTO) 9.9 10^3/uL (1.5-6.6); NEUTROPHILS % (AUTO) 81.7 %; PLT - PLATELET COUNT 195 10^3/uL (130-450); RED BLOOD COUNT 3.35 10^6/uL (4.20-5.40); RED CELL DISTRIBUTION WIDTH 14.1 % (12.0-15.0); WHITE BLOOD COUNT 12.1 x10^3/uL (4.8-10.8)
[2020-04-24 09:06] LABS: ALBUMIN 2.5 g/dL (3.2-5.5); ALBUMIN/GLOBULIN RATIO 0.7 (1.0-2.2); BILIRUBIN,TOTAL 0.4 mg/dL (0.2-1.0); CALCIUM 8.8 mg/dL (8.5-10.3); CREATININE 0.7 mg/dL (0.4-1.0); POTASSIUM 3.5 mmol/L (3.5-5.0)
[2020-04-24] MEDS: DOCUSATE SODIUM 100 MG CAPSULE PO SCH (09:06)
[2020-04-24] MEDS: SERTRALINE 50 MG TABLET PO SCH (09:06)
[2020-04-24] MEDS: oxyCODONE 5 MG TABLET PO PRN ×2 (09:10→22:37)
--- NOTE | 2020-04-24 10:03 | PROVIDER PROGRESS NOTE ---
Subjective - General Admit Date: 04/22/20 Procedure Date: 04/22/20 Post Op Days: 2 Procedure Performed: ELTC/S - Review of Systems Wound/Incisions: positive: Dressing dry and intact Objective - Patient Data Reviewed Vital Signs: Yes Vital Signs: Vital Signs x48h Temp Pulse Resp BP BP Pulse Ox 04/24/20 09:00 36.6 C 84 20 137/69 H 99 04/24/20 05:43 36.8 C 62 16 114/58 L 98 Weight: Weight 04/22/20 04/23/20 04/24/20 23:59 23:59 23:59 Weight (kg) 108.862 kg Intake & Output: Intake and Output Totals x24h 04/22/20 04/23/20 04/24/20 23:59 23:59 23:59 Intake Total 2103.333 620 Output Total 500 1510 500 Balance 1603.333 -1510 120 - Lab Results Lab Results: 04/24/20 08:42 04/24/20 08:42 Other Lab Results: Lab Results x24hrs 04/24/20 04/24/20 04/23/20 Range/Units 08:42 08:42 15:20 WBC 12.1 H (4.8-10.8) x10^3/uL RBC 3.35 L (4.20-5.40) 10^6/uL Hgb 10.3 L (12.0-16.0) g/dL Hct 32.2 L (37.0-47.0) % MCV 96.1 (81.0-99.0) fL MCH 30.7 (27.0-31.0) pg MCHC 32.0 (32.0-36.0) g/dL RDW 14.1 (12.0-15.0) % Plt Count 195 (130-450) 10^3/uL MPV 9.9 (7.9-10.8) fL Neut # (Auto) 9.9 H (1.5-6.6) 10^3/uL Lymph # (Auto) 1.4 L (1.5-3.5) 10^3/uL Johnston # (Auto) 0.7 (0.0-1.0) 10^3/uL Eos # (Auto) 0.1 (0.0-0.7) 10^3/uL Baso # (Auto) 0.0 (0.0-0.1) 10^3/uL Absolute Nucleated RBC 0.00 x10^3/uL Nucleated RBC % 0.0 /100WBC Sodium 140 (135-145) mmol/L Potassium 3.5 (3.5-5.0) mmol/L Chloride 102 (101-111) mmol/L Carbon Dioxide 26 (21-32) mmol/L Anion Gap 12.0 (6-13) BUN 17 (6-20) mg/dL Creatinine 0.7 (0.4-1.0) mg/dL Estimated GFR (MDRD) 95 (>89) Glucose 96 (70-100) mg/dL Estimat Average Glucose 105 H (70-100) mg/dL Hemoglobin A1c % 5.3 (4.27-6.07) % Calcium 8.8 (8.5-10.3) mg/dL Total Bilirubin 0.4 (0.2-1.0) mg/dL AST 38 (10-42) IU/L ALT 33 (10-60) IU/L Alkaline Phosphatase 149 H (42-121) IU/L Total Protein 6.0 L (6.7-8.2) g/dL Albumin 2.5 L (3.2-5.5) g/dL Globulin 3.5 (2.1-4.2) g/dL Albumin/Globulin Ratio 0.7 L (1.0-2.2) TSH (0.34-5.60) uIU/mL Coronavirus (PCR) Group B Strep (PCR) (NEGATIVE) 04/23/20 04/23/20 04/22/20 Range/Units 15:20 15:20 15:50 WBC 16.3 H (4.8-10.8) x10^3/uL RBC 3.56 L (4.20-5.40) 10^6/uL Hgb 11.1 L (12.0-16.0) g/dL Hct 33.6 L (37.0-47.0) % MCV 94.4 (81.0-99.0) fL MCH 31.2 H (27.0-31.0) pg MCHC 33.0 (32.0-36.0) g/dL RDW 13.7 (12.0-15.0) % Plt Count 231 (130-450) 10^3/uL MPV 9.9 (7.9-10.8) fL Neut # (Auto) 13.6 H (1.5-6.6) 10^3/uL Lymph # (Auto) 1.4 L (1.5-3.5) 10^3/uL Johnston # (Auto) 1.1 H (0.0-1.0) 10^3/uL Eos # (Auto) 0.0 (0.0-0.7) 10^3/uL Baso # (Auto) 0.0 (0.0-0.1) 10^3/uL Absolute Nucleated RBC 0.00 x10^3/uL Nucleated RBC % 0.0 /100WBC Sodium (135-145) mmol/L Potassium (3.5-5.0) mmol/L Chloride (101-111) mmol/L Carbon Dioxide (21-32) mmol/L Anion Gap (6-13) BUN (6-20) mg/dL Creatinine (0.4-1.0) mg/dL Estimated GFR (MDRD) (>89) Glucose (70-100) mg/dL Estimat Average Glucose (70-100) mg/dL Hemoglobin A1c % (4.27-6.07) % Calcium (8.5-10.3) mg/dL Total Bilirubin (0.2-1.0) mg/dL AST (10-42) IU/L ALT (10-60) IU/L Alkaline Phosphatase (42-121) IU/L Total Protein (6.7-8.2) g/dL Albumin (3.2-5.5) g/dL Globulin (2.1-4.2) g/dL Albumin/Globulin Ratio (1.0-2.2) TSH 2.35 (0.34-5.60) uIU/mL Coronavirus (PCR) NEGATIVE Group B Strep (PCR) (NEGATIVE) 04/22/20 Range/Units 15:50 WBC (4.8-10.8) x10^3/uL RBC (4.20-5.40) 10^6/uL Hgb (12.0-16.0) g/dL Hct (37.0-47.0) % MCV (81.0-99.0) fL MCH (27.0-31.0) pg MCHC (32.0-36.0) g/dL RDW (12.0-15.0) % Plt Count (130-450) 10^3/uL MPV (7.9-10.8) fL Neut # (Auto) (1.5-6.6) 10^3/uL Lymph # (Auto) (1.5-3.5) 10^3/uL Johnston # (Auto) (0.0-1.0) 10^3/uL Eos # (Auto) (0.0-0.7) 10^3/uL Baso # (Auto) (0.0-0.1) 10^3/uL Absolute Nucleated RBC x10^3/uL Nucleated RBC % /100WBC Sodium (135-145) mmol/L Potassium (3.5-5.0) mmol/L Chloride (101-111) mmol/L Carbon Dioxide (21-32) mmol/L Anion Gap (6-13) BUN (6-20) mg/dL Creatinine (0.4-1.0) mg/dL Estimated GFR (MDRD) (>89) Glucose (70-100) mg/dL Estimat Average Glucose (70-100) mg/dL Hemoglobin A1c % (4.27-6.07) % Calcium (8.5-10.3) mg/dL Total Bilirubin (0.2-1.0) mg/dL AST (10-42) IU/L ALT (10-60) IU/L Alkaline Phosphatase (42-121) IU/L Total Protein (6.7-8.2) g/dL Albumin (3.2-5.5) g/dL Globulin (2.1-4.2) g/dL Albumin/Globulin Ratio (1.0-2.2) TSH (0.34-5.60) uIU/mL Coronavirus (PCR) Group B Strep (PCR) NEGATIVE (NEGATIVE) - Current Medications Current Medications: Current Medications Generic Name Dose Route Start Last Admin Trade Name Freq PRN Reason Stop Dose Admin Acetaminophen 1,000 mg 04/23/20 06:00 04/24/20 09:06 Acetaminophen 500 Mg Tablet PO 1,000 mg Q8H SUGAR Administration Docusate Sodium 100 mg 04/23/20 09:00 04/24/20 09:06 Docusate Sodium 100 Mg Capsule PO 100 mg BID SUGAR Administration Ibuprofen 600 mg 04/24/20 06:00 04/24/20 05:55 Ibuprofen 600 Mg Tablet PO 600 mg Q6H SUGAR Administration Oxycodone HCl 5 mg 04/23/20 05:35 04/24/20 09:10 Oxycodone 5 Mg Tablet PO 5 mg Q4HR PRN Administration PAIN Sertraline HCl 100 mg 04/23/20 09:00 04/24/20 09:06 Sertraline 50 Mg Tablet PO 100 mg DAILY SUGAR Administration Sodium Chloride 10 ml 04/23/20 09:00 04/23/20 17:33 Sodium Chloride Flush 0.9% 10 Ml Syringe IVP 10 ml 0100,0900,1700 SUGAR Administration - Physical Exam Wound/Incisions: positive: Healing well. negative: Erythema General Appearance: positive: No acute distress, Alert (Pt is anxious asb[facility] is in N[facility] Abdomen: positive: Tenderness, Mass (U-2. nursing exam was very tender secondary to large bladder pt voided 1 leter or pink urine.) Impression/Plan - Problem List Problem List: POD #2 history of prolonged rupture of membrains. recieved Antibiotics priot to C/S. Suspect endomyometritis. Start Amp and gent.
[2020-04-24 10:14] LABS: CREATININE,URINE 54.5 mg/dL; PROTEIN/CREATININE RATIO,URINE 1.1 (<=0.2)
[2020-04-24] MEDS: AMPICILLIN/SULBACTAM 3 GM in SODIUM CHLORIDE 0.9% MINIBAG 100 ML IV SCH ×2 (11:01→17:30)
[2020-04-24] MEDS ORDERED: AMPICILLIN 2 GM in SODIUM CHLORIDE 0.9% MINIBAG 100 ML IV SCH (12:00)
[2020-04-24] MEDS: SODIUM CHLORIDE FLUSH 0.9% 10 ML SYRINGE IVP SCH ×3 (17:30→18:15)
[2020-04-24] MEDS ORDERED: hydrOXYzine PAMOATE 25 MG CAPSULE PO PRN (22:16)
[2020-04-25] MEDS: IBUPROFEN 600 MG TABLET PO SCH ×4 (00:22→18:44)
[2020-04-25] MEDS: AMPICILLIN/SULBACTAM 3 GM in SODIUM CHLORIDE 0.9% MINIBAG 100 ML IV SCH ×4 (00:22→18:44)
[2020-04-25] MEDS: ACETAMINOPHEN 500 MG TABLET PO SCH ×2 (06:31→14:27)
[2020-04-25] MEDS: SERTRALINE 50 MG TABLET PO SCH (08:10)
[2020-04-25] MEDS: DOCUSATE SODIUM 100 MG CAPSULE PO SCH (08:12)
[2020-04-25] MEDS: SIMETHICONE CHEW 80 MG TABLET PO SCH (08:12)
--- NOTE | 2020-04-25 09:09 | PROVIDER PROGRESS NOTE ---
Subjective - General Admit Date: 04/22/20 Procedure Date: 04/22/20 Post Op Days: 3 Procedure Performed: ELTC/S - Review of Systems Wound/Incisions: positive: Healing well (No signs of erythema). negative: E rythema General: positive: No symptoms. negative: Fever Genitourinary: positive: No symptoms Objective - Patient Data Reviewed Vital Signs: Yes Vital Signs: Vital Signs x48h Temp Pulse Resp BP Pulse Ox 04/25/20 08:18 36.8 C 65 16 123/45 L 98 04/25/20 06:45 85 157/79 H 04/25/20 06:42 98.4 C H 77 18 148/93 H 100 Intake & Output: Intake and Output Totals x24h 04/23/20 04/24/20 04/25/20 23:59 23:59 23:59 Intake Total 820 200 Output Total 1510 3350 1000 Balance -1510 -2530 -800 - Lab Results Lab Results: 04/24/20 08:42 04/24/20 08:42 Other Lab Results: Lab Results x24hrs 04/24/20 04/24/20 Range/Units 09:10 08:42 Sodium 140 (135-145) mmol/L Potassium 3.5 (3.5-5.0) mmol/L Chloride 102 (101-111) mmol/L Carbon Dioxide 26 (21-32) mmol/L Anion Gap 12.0 (6-13) BUN 17 (6-20) mg/dL Creatinine 0.7 (0.4-1.0) mg/dL Estimated GFR (MDRD) 95 (>89) Glucose 96 (70-100) mg/dL Calcium 8.8 (8.5-10.3) mg/dL Total Bilirubin 0.4 (0.2-1.0) mg/dL AST 38 (10-42) IU/L ALT 33 (10-60) IU/L Alkaline Phosphatase 149 H (42-121) IU/L Total Protein 6.0 L (6.7-8.2) g/dL Albumin 2.5 L (3.2-5.5) g/dL Globulin 3.5 (2.1-4.2) g/dL Albumin/Globulin Ratio 0.7 L (1.0-2.2) Urine Creatinine 54.5 mg/dL Ur Total Protein Timed 58 mg/dL Protein/Creatinin Ratio 1.1 H (<=0.2) - Current Medications Current Medications: Current Medications Generic Name Dose Route Start Last Admin Trade Name Freq PRN Reason Stop Dose Admin Acetaminophen 1,000 mg 04/23/20 06:00 04/25/20 06:31 Acetaminophen 500 Mg Tablet PO 1,000 mg Q8H SUGAR Administration Docusate Sodium 100 mg 04/23/20 09:00 04/25/20 08:12 Docusate Sodium 100 Mg Capsule PO 100 mg BID SUGAR Administration Hydroxyzine Pamoate 25 mg 04/24/20 22:16 04/24/20 22:36 Hydroxyzine Pamoate 25 Mg Capsule PO 25 mg QPM PRN Administration Insomnia Ampicillin Sodium/Sulbactam 100 mls @ 200 mls/hr 04/24/20 11:00 04/25/20 08:24 Sodium 3 gm/ Sodium Chloride IV Infused Q6HR SUGAR Infusion Ibuprofen 600 mg 04/24/20 06:00 04/25/20 06:32 Ibuprofen 600 Mg Tablet PO 600 mg Q6H SUGAR Administration Oxycodone HCl 5 mg 04/23/20 05:35 04/24/20 22:37 Oxycodone 5 Mg Tablet PO 5 mg Q4HR PRN Administration PAIN Sertraline HCl 100 mg 04/23/20 09:00 04/25/20 08:10 Sertraline 50 Mg Tablet PO 100 mg DAILY SUGAR Administration Simethicone 80 mg 04/23/20 06:00 04/25/20 08:12 Simethicone Chew 80 Mg Tablet PO 80 mg TID SUGAR Administration Sodium Chloride 10 ml 04/23/20 05:28 04/24/20 18:14 Sodium Chloride Flush 0.9% 10 Ml Syringe IVP 10 ml PRN PRN Administration NEEDED PER PROVIDER ORDERS Sodium Chloride 10 ml 04/23/20 09:00 04/24/20 18:15 Sodium Chloride Flush 0.9% 10 Ml Syringe IVP Not Given 0100,0900,1700 [facility] - Physical Exam Wound/Incisions: positive: Healing well, No drainage. negative: Erythema General Appearance: positive: No acute distress, Alert Respiratory: positive: Chest non-tender, No respiratory distress, Breath sounds nml Cardiovascular: positive: Regular rate & rhythm, No murmur, No gallop Abdomen: positive: Non-tender, No organomegaly, Nml bowel sounds, Mass (Uterus is nontender) Extremities: negative: Calf tenderness, Wilma's sign/cords Neurologic/Psychiatric: positive: Oriented x3 (Pt is anxious to see baby) Impression/Plan - Problem List Problem List: 1. POD # 2 Endomyometritis resolving. with unisyn. 2. solitary BP elevation. will obtain CC for P/C ratio. Anticipate Discharge in the PM
[2020-04-25 09:25] LABS: BASOPHILS % (AUTO) 0.2 %; EOSINOPHILS # (AUTO) 0.1 10^3/uL (0.0-0.7); EOSINOPHILS % (AUTO) 0.9 %; HCT - HEMATOCRIT 32.4 % (37.0-47.0); HGB - HEMOGLOBIN 10.2 g/dL (12.0-16.0); LYMPHOCYTES # (AUTO) 1.4 10^3/uL (1.5-3.5); LYMPHOCYTES % (AUTO) 13.6 %; MEAN CORPUSCULAR HEMOGLOBIN 30.6 pg (27.0-31.0); MEAN CORPUSCULAR HGB CONC 31.5 g/dL (32.0-36.0); MEAN CORPUSCULAR VOLUME 97.3 fL (81.0-99.0); MEAN PLATELET VOLUME 9.6 fL (7.9-10.8); MONOCYTES # (AUTO) 0.6 10^3/uL (0.0-1.0); MONOCYTES % (AUTO) 5.3 %; NEUTROPHILS # (AUTO) 8.4 10^3/uL (1.5-6.6); NEUTROPHILS % (AUTO) 79.3 %; PLT - PLATELET COUNT 204 10^3/uL (130-450); RED BLOOD COUNT 3.33 10^6/uL (4.20-5.40); RED CELL DISTRIBUTION WIDTH 14.1 % (12.0-15.0); WHITE BLOOD COUNT 10.5 x10^3/uL (4.8-10.8)
[2020-04-25 11:59] LABS: CREATININE,URINE 70.3 mg/dL; PROTEIN/CREATININE RATIO,URINE 0.2 (<=0.2)
[2020-04-26] MEDS: IBUPROFEN 600 MG TABLET PO SCH ×2 (01:43→08:17)
[2020-04-26] MEDS: ACETAMINOPHEN 500 MG TABLET PO SCH ×2 (01:43→10:05)
[2020-04-26] MEDS: DOCUSATE SODIUM 100 MG CAPSULE PO SCH (01:44)
[2020-04-26] MEDS: AMPICILLIN/SULBACTAM 3 GM in SODIUM CHLORIDE 0.9% MINIBAG 100 ML IV SCH ×2 (01:44→08:18)
[2020-04-26] MEDS: oxyCODONE 5 MG TABLET PO PRN (03:01)
[2020-04-26] MEDS: SIMETHICONE CHEW 80 MG TABLET PO SCH (08:17)
[2020-04-26] MEDS: SERTRALINE 50 MG TABLET PO SCH (08:17)
[2020-04-26] MEDS: SODIUM CHLORIDE FLUSH 0.9% 10 ML SYRINGE IVP SCH (08:19)
--- NOTE | 2020-04-26 09:18 | PROVIDER PROGRESS NOTE ---
Subjective - General Admit Date: 04/22/20 Procedure Date: 04/22/20 Post Op Days: 4 Procedure Performed: ELTC/S - Review of Systems Wound/Incisions: positive: Healing well (NO ERYTHEMA), No drainage. negative: Erythema General: positive: No symptoms (Pain 1/10, Passing flatus. no stool yet). negative: Fever Genitourinary: positive: No symptoms Objective - Patient Data Reviewed Vital Signs: Yes Vital Signs: Vital Signs x48h Temp Pulse Resp BP Pulse Ox 04/26/20 02:00 36.9 C 77 16 134/80 H 100 Intake & Output: Intake and Output Totals x24h 04/24/20 04/25/20 04/26/20 23:59 23:59 23:59 Intake Total 820 400 100 Output Total 3350 1000 Balance -2530 -600 100 - Lab Results Lab Results: 04/25/20 09:18 04/24/20 08:42 Other Lab Results: Lab Results x24hrs 04/25/20 04/25/20 Range/Units 11:15 09:18 WBC 10.5 (4.8-10.8) x10^3/uL RBC 3.33 L (4.20-5.40) 10^6/uL Hgb 10.2 L (12.0-16.0) g/dL Hct 32.4 L (37.0-47.0) % MCV 97.3 (81.0-99.0) fL MCH 30.6 (27.0-31.0) pg MCHC 31.5 L (32.0-36.0) g/dL RDW 14.1 (12.0-15.0) % Plt Count 204 (130-450) 10^3/uL MPV 9.6 (7.9-10.8) fL Neut # (Auto) 8.4 H (1.5-6.6) 10^3/uL Lymph # (Auto) 1.4 L (1.5-3.5) 10^3/uL [place]rien # (Auto) 0.6 (0.0-1.0) 10^3/uL Eos # (Auto) 0.1 (0.0-0.7) 10^3/uL Baso # (Auto) 0.0 (0.0-0.1) 10^3/uL Absolute Nucleated RBC 0.00 x10^3/uL Nucleated RBC % 0.0 /100WBC Urine Creatinine 70.3 mg/dL Ur Total Protein Timed 14 mg/dL Protein/Creatinin Ratio 0.2 (<=0.2) - Current Medications Current Medications: Current Medications Generic Name Dose Route Start Last Admin Trade Name Freq PRN Reason Stop Dose Admin Acetaminophen 1,000 mg 04/23/20 06:00 04/26/20 01:43 Acetaminophen 500 Mg Tablet PO 1,000 mg Q8H SUGAR Administration Docusate Sodium 100 mg 04/23/20 09:00 04/26/20 01:44 Docusate Sodium 100 Mg Capsule PO 100 mg BID SUGAR Administration Hydroxyzine Pamoate 25 mg 04/24/20 22:16 04/24/20 22:36 Hydroxyzine Pamoate 25 Mg Capsule PO 25 mg QPM PRN Administration Insomnia Ampicillin Sodium/Sulbactam 100 mls @ 200 mls/hr 04/24/20 11:00 04/26/20 0 8:18 Sodium 3 gm/ Sodium Chloride IV 100 mls/hr Q6HR SUGAR Administration Ibuprofen 600 mg 04/24/20 06:00 04/26/20 08:17 Ibuprofen 600 Mg Tablet PO 600 mg Q6H SUGAR Administration Oxycodone HCl 5 mg 04/23/20 05:35 04/26/20 03:01 Oxycodone 5 Mg Tablet PO 5 mg Q4HR PRN Administration PAIN Sertraline HCl 100 mg 04/23/20 09:00 04/26/20 08:17 Sertraline 50 Mg Tablet PO 100 mg DAILY SUGAR Administration Simethicone 80 mg 04/23/20 06:00 04/26/20 08:17 Simethicone Chew 80 Mg Tablet PO 80 mg TID SUGAR Administration Sodium Chloride 10 ml 04/23/20 05:28 04/24/20 18:14 Sodium Chloride Flush 0.9% 10 Ml Syringe IVP 10 ml PRN PRN Administration NEEDED PER PROVIDER ORDERS Sodium Chloride 10 ml 04/23/20 09:00 04/26/20 08:19 Sodium Chloride Flush 0.9% 10 Ml Syringe IVP 10 ml 0100,0900,1700 SUGAR Administration - Physical Exam Wound/Incisions: positive: Healing well, Dressing dry and intact, No drainage General Appearance: positive: No acute distress, Alert Abdomen: positive: Non-tender, No organomegaly, No distention Extremities: positive: Pedal edema. negative: Calf tenderness, Wilma's sign/cords Neurologic/Psychiatric: positive: Oriented x3 Impression/Plan - Problem List Problem List: POD #4. no signs of endomyometritis. good pain control. Send home RTC 1 week Discharge Medication s Oxycodone 5 mg # 10 Motrin 600-800mg home supply tylenol Colace 100.
[2020-04-26] MEDS ORDERED: BISACODYL 10 MG SUPP PR PRN (09:23)
[2020-04-26] MEDS ORDERED: polyethylene glycoL 3350 17 GM PACKET PO PRN (09:23)
--- NOTE | 2020-04-26 09:55 | Discharge Plan ---
Discharge Plan Problem Reviewed?: Yes Disposition: Home, Self Care Condition: Good Prescriptions: Amox/Clav 500/125 [Augmentin] 1 each PO Q12H #10 tablet oxyCODONE [Roxicodone] 5 mg PO Q4-6H PRN #10 tablet PRN Reason: Pain Diet: Regular Activity Restrictions: Pelvic rest 6 wks Shower Restrictions: No Driving Restrictions: Yes (Not while taking narcotics) Weight Bearing: Full Weight (Pt will see up for Post OP and Tannery Worker for OB) No Smoking: If you smoke, Please STOP! Call for help. Follow-up with: Ricco Linares DO [Primary Care Provider] -
[2020-04-26 10:16] VITALS: BP 143/81
--- NOTE | 2020-04-26 13:43 | Labor Flowsheet ---
Labor Flowsheet Datetime Report Generated by CPN: 04/26/2020 13:42 Datetime: 04/26/2020 10:15 VITAL SIGNS NBP Sys/Trinh/Mean (mmHg): 143 : 81 : 96 Pulse: 87 LaborFlag: Labor Datetime: 04/25/2020 06:39 SpO2 (%): 100 Datetime: 04/23/2020 03:01 ASSESSMENT A Monitor Mode: External US FHR Baseline Rate : 175 FHR Baseline Changes: Tachycardia Variability: Moderate 6-25 bpm Accelerations: 15X15 Decelerations: Variable Category: Category II Datetime: 04/23/2020 02:52 Patient Care Comments: vomiting Datetime: 04/23/2020 02:50 TEACHING Instructional Method: Verbal; Patient Instructed; Family/Support Person Instructed; Verbalized Unde rstanding (Annotations: Dr. Rodríguez explaining need to perform to pt and S.O. Time given for que stions/concerns. Consent obtained.) Datetime: 04/23/2020 02:40 VAGINAL EXAM Dilatation (cm): SVE performed by MD, no change (Annotations: MD discussing with pt.) Patient Position/Activity: Left Tilt; Semi-Fowlers Provider Reviewed Strip: Yes (Annotations: Dr. Rodríguez at bedside) Datetime: 04/23/2020 02:30 UTERINE ACTIVITY Monitor Mode: External Frequency (min): 2-4 Quality: Moderate Duration (sec): 60-100 Pattern: Normal: <= 5 Contractions in 10 Minutes Resting Tone (Palpate): Relaxed Datetime: 04/23/2020 02:02 Stage of : Labor Respirations: 16 Temperature (C): 37.1 Temperature Route: Oral Datetime: 04/23/2020 02:00 Boyd Units (mmHg): 190 Datetime: 04/23/2020 01:55 Intensity IUP (mmHg): 40-65 Contraction Comments: baby moving Datetime: 04/23/2020 01:45 Actions for Decelerations: Provider Notified Comments: Deceleration to 90's with recovery Datetime: 04/23/2020 01:41 COMMUNICATION Communication: Call/Page Placed to Provider Communication Comments: Dr. Rodríguez updated re variables and pitocin turned off. Will try hands a nd knees position and proceed with amnioinfusion if needed. Datetime: 04/23/2020 01:39 MEDICATIONS Pitocin (milliunits): Discontinued (Annotations: fluid bolus started) Datetime: 04/23/2020 01:30 Resting Tone IUP (mmHg): 15 Effacement (%): 80 Station: 0 Membrane Status: Ruptured Amniotic Fluid Color: Bloody Amniotic Fluid Amount: Small Amniotic Fluid Odor: Normal Vaginal Bleeding: Normal Show Datetime: 04/23/2020 01:00 Pitocin Checklist: At Least 1 Acceleration of 15 bpm x 15 Seconds in 30 Minutes or Adequate Variabi lity; No More than 2 Variable Decelerations > 60 Seconds in Duration and decreasing >60 bpm in 30 min utes; No More than 5 Uterine Contractions in 10 Minutes for any 20 Minute Interval; Uterus Palpates S oft between Contractions; IUPC Resting Tone less than 25 mmHg Datetime: 04/23/2020 00:27 Medication Comments: increased to 4 mu Datetime: 04/23/2020 00:07 PAIN Pain Scale: 2 Pain Type: Cramping Pain Location: Abdomen Pain Relief Measures: Epidural Given Pain Coping: Talking Through Contractions Anesthesia Level Check: T5 Datetime: 04/23/2020 00:02 Exam by: Abe RNC Datetime: 04/22/2020 23:06 Pain Presence: Intermittent Datetime: 04/22/2020 22:49 Antiemetics/Antacids: Zofran (mg) @ 4 mg IV Datetime: 04/22/2020 19:40 Bedside Blood Glucose: 2 Datetime: 04/22/2020 19:39 Provider Notified (Name): Dr. Marcos Datetime: 04/22/2020 17:58 Cervix, Consistency: Soft Cervix, Position: Midposition Datetime: 04/22/2020 17:30 Monitor Interventions for UA: Tira Adjusted Datetime: 04/22/2020 17:24 Oxygen Amount (LPM): 10 Datetime: 04/22/2020 15:30 Monitor Interventions for FHR: Ultrasound Adjusted Datetime: 04/22/2020 15:29 Epidural Procedure Other: Pump Started Datetime: 04/22/2020 15:26 Epidural Procedure: Loading Dose Datetime: 04/22/2020 15:14 PROCEDURE TIME OUT Procedure Verify: Agreement on Procedure to be Done; Correct Patient Position; Safety Precautions B ased on Patient History or Medication Use ANESTHESIA Anesthesia Plans: Epidural Epidural Positioning: Sitting Datetime: 04/22/2020 15:00 Anesthesia Comments: [employer] Negro @ bedside for anesthesia consult Datetime: 04/22/2020 14:39 Analgesics/Sedatives: Benadryl (mg) @ 50 IVP Datetime: 04/22/2020 14:35 PATIENT CARE IV/Blood Work: IV Infusing per Order; IV Bag Number @ 1
--- NOTE | 2020-05-17 14:13 | DISCHARGE SUMMARY ---
Physician: John Britton MD DATE OF ADMISSION: 04/22/2020 DATE OF DISCHARGE: 04/26/2020 ADMITTING DIAGNOSES 1. A 34-year-old primigravida, EDC 17 of April, 40 weeks 5 days. 2. Bacterial vaginosis. 3. Transfer of care from plastic battery assembler. 4. Anxiety. 5. Anemia. 6. Prodromal labor. 7. Spontaneous rupture of membranes, unknown duration. 8. Shinto refusal of transfusion. DISCHARGE DIAGNOSES 1. A 34-year-old primigravida, EDC 17 of April, 40 weeks 5 days. 2. Bacterial vaginosis. 3. Transfer of care from plastic battery assembler. 4. Anxiety. 5. Anemia. 6. Prodromal labor. 7. Spontaneous rupture of membranes, unknown duration. 8. Shinto refusal of transfusion. 9. Chorioamnionitis with endometritis. 10. intolerance of labor. PROCEDURES 1. Misoprostol cervical ripening. 2. Pitocin augmentation. 3. Epidural. 4. Intrauterine pressure catheter. 5. Triple antibiotics. 6. Primary low transverse section. PRESENTING HISTORY: Patient is a 34-year-old primigravida who initiated her OB care with a plastic battery assembler at [place]. She had her course there. She was noted to be A-negative. Her 50 gram Glucola was 82. She had an ultrasound at 20 weeks, which was compatible with dates. She decided to transfer care because she was post dates and was thought to be in labor for the last 3 days. She is requesting induction of labor. LABORATORIES: CBC on admission showed a white count of 11.8, hemoglobin 12.1, hematocrit was 36.7, platelets were 296. She was positive for rupture of membranes. She was coronavirus as well as group B strep negative. She reached a zenith on her white count of 16.3, which fell to 10.5 day prior to discharge. Her hemoglobin reached a yesenia of 10.2. Platelets all remained above 200. Her electrolytes all remained within normal limits. Protein-creatinine ratio initially was 1.1 but fell to 0.2 day prior to discharge. HOSPITAL COURSE: Patient was admitted and started to receive misoprostol for an unfavorable cervix. She continued to dilate and had Pitocin augmentation. During this, she had an IUPC placed for uterine contraction monitoring. She developed late decelerations at roughly 5 cm and, despite multiple position changes, oxygen, and fluid challenges continued to have recurrence of these. Because she developed a fever during labor, she was placed on ampicillin, gent, and clindamycin. Because of intolerance of labor, a primary low transverse section was accomplished. At time of delivery, a live male infant with Apgars 8 and 9, weighing 6 pounds 14 ounces, was delivered. The eventually developed problems and had to be transferred to [facility] in [place], [place]. Patient's course was significant in that she had what appeared to be an endomyometritis, which was treated with ampicillin and gentamicin, which responded quite well. The patient's blood pressures throughout her hospital course normalized. She was discharged to home on 04/26/2020. Incision showed no erythema. Pain was 1/10. DISCHARGE MEDICATIONS: One dose of oxycodone, Motrin, and Tylenol, as well as Colace. The patient is instructed to follow up in the clinic in 1 week. TD: 05/17/2020 12:52 darnell ONEILL
== END 2020-04-26 12:45 | disposition home or self-care (01) | DRG 786 ==
LOC: WFO 11:41 → FBP 11:42 → WFO 13:26 → FBP 13:27 → INTOOBSV 15:00 → OBSVTOIN 15:00
PROVIDERS: ADMIT Obstetrics & Gynecology; ATTEND Obstetrics & Gynecology
PROC: 10D00Z1 Extraction of Products of Conception, Low, Open Approach (ICD-10-PCS; principal; 2020-04-23 03:34)
DX: O48.0 Post-term pregnancy (principal); O41.1230 Chorioamnionitis, third trimester, not applicable or unspecified; O75.3 Other infection during labor; O63.9 Long labor, unspecified; O86.12 Endometritis following delivery; Z3A.40 40 weeks gestation of pregnancy; O99.02 Anemia complicating childbirth; D64.89 Other specified anemias; Z37.0 Single live birth; O77.0 Labor and delivery complicated by meconium in amniotic fluid; O76 Abnormality in fetal heart rate and rhythm complicating labor and delivery; O62.8 Other abnormalities of forces of labor; O99.344 Other mental disorders complicating childbirth; Z20.828 Contact with and (suspected) exposure to other viral communicable diseases; O99.214 Obesity complicating childbirth; E66.01 Morbid (severe) obesity due to excess calories; F41.0 Panic disorder [episodic paroxysmal anxiety]
CPT/HCPCS: 0202U; 36415; 51701; 80053; 82570; 83033; 83036; 84112; 84156; 84443; 85025; 86850; 86900; 86901; 87635; 87797; 88307; 96365; 96375; A9270; G0378; J1200; J2274; J7120; 87081

== ENCOUNTER 2020-05-11 08:00 | Outpatient (CLI) | payer OTHER ==
[2020-05-11 21:50] LABS: CANDIDA GROUP DNA NEGATIVE (NEGATIVE); CANDIDA KRUSEI DNA NEGATIVE (NEGATIVE); TRICHOMONAS VAGINALIS DNA NEGATIVE (NEGATIVE)
[2020-05-11 22:43] LABS: TRICHOMONAS VAGINALIS DNA NEGATIVE (NEGATIVE)
== END 2020-05-11 23:59 ==
LOC: LAB.N 08:00
PROVIDERS: ATTEND Obstetrics & Gynecology
DX: Z51.89 Encounter for other specified aftercare (principal); N76.0 Acute vaginitis
CPT/HCPCS: 81599; 87070; 87075; 87077; 87186; 87205; 87491; 87591; 87661; 87801

== ENCOUNTER 2020-05-11 12:20 | Outpatient (CLI) | payer OTHER ==
[2020-05-11 18:45] LABS: HCT - HEMATOCRIT 40.3 % (37.0-47.0); HGB - HEMOGLOBIN 12.4 g/dL (12.0-16.0); MEAN CORPUSCULAR HEMOGLOBIN 29.6 pg (27.0-31.0); MEAN CORPUSCULAR HGB CONC 30.8 g/dL (32.0-36.0); MEAN CORPUSCULAR VOLUME 96.2 fL (81.0-99.0); MEAN PLATELET VOLUME 9.1 fL (7.9-10.8); RED BLOOD COUNT 4.19 10^6/uL (4.20-5.40); RED CELL DISTRIBUTION WIDTH 13.2 % (12.0-15.0); WHITE BLOOD COUNT 6.9 x10^3/uL (4.8-10.8)
[2020-05-11 18:55] LABS: ALBUMIN 3.9 g/dL (3.2-5.5); BILIRUBIN,TOTAL 0.4 mg/dL (0.2-1.0); CALCIUM 9.5 mg/dL (8.5-10.3); CREATININE 0.8 mg/dL (0.4-1.0); POTASSIUM 4.2 mmol/L (3.5-5.0)
== END 2020-05-11 12:21 | disposition home or self-care (01) ==
LOC: LAB.N 12:20
PROVIDERS: ATTEND Obstetrics & Gynecology
DX: R60.0 Localized edema (principal); N71.9 Inflammatory disease of uterus, unspecified; N76.0 Acute vaginitis
CPT/HCPCS: 36415; 80053; 83880; 85027

== ENCOUNTER 2021-08-23 13:41 | Outpatient (CLI) | payer OTHER ==
--- NOTE | 2021-08-23 15:38 | XRAY Report ---
PROCEDURE: Lumbar Spine Complete INDICATIONS: LOW BACK PAIN TECHNIQUE: 5 views of the lumbar spine were acquired. COMPARISON: None. FINDINGS: Bones: 5 [id number] vertebrae are present. Transitional element at S1 is present. Multilevel d isc space narrowing and endplate osteophyte formation, worst at L5-S1. Mild facet hypertrophy through out the mid and lower lumbar spine. There is normal bony alignment. No vertebral body compression fr actures. No suspicious bony lesions. Soft tissues: Overlying bowel gas pattern is normal. No suspicious soft tissue calcifications. IMPRESSION: 1. Transitional element at S1. 2. Degenerative disc and facet disease. 3. No acute fracture. No osseous lesion. If symptoms and/or clinical suspicion for pathology continue , further assessment with repeat plain films, or advanced imaging (e.g., CT, MRI, or bone scan) is re commended for further assessment. Reviewed by: Rula Monahan MD on 08/23/2021 3:36 PM PDT Approved by: Rula Monahan MD on 08/23/2021 3:36 PM PDT Station ID: [id number]
== END 2021-08-23 13:42 | disposition home or self-care (01) ==
LOC: DI 13:41
PROVIDERS: ATTEND Family Medicine
DX: M47.816 Spondylosis without myelopathy or radiculopathy, lumbar region (principal); M51.36 Other intervertebral disc degeneration, lumbar region; M51.37 Other intervertebral disc degeneration, lumbosacral region

== ENCOUNTER 2022-02-18 13:56 | Emergency (ER) | payer OTHER ==
[2022-02-18 14:04] VITALS: BP 125/88
--- NOTE | 2022-02-18 14:34 | XRAY Report ---
PROCEDURE: Ankle 3 View LT INDICATIONS: Trauma TECHNIQUE: 3 views of the ankle were acquired. COMPARISON: None FINDINGS: Bones: No fractures or dislocations. Ankle mortise is normally aligned. No suspicious bony lesions . Well-defined plantar calcaneal enthesophyte is seen. Soft tissues: No tibiotalar joint effusion. Achilles tendon appears normal. IMPRESSION: No acute ankle fracture or dislocation. Ankle mortise is congruent. Calcaneal enthesophy te. Reviewed by: Ion Fung MD on 02/18/2022 2:33 PM PDT Approved by: Ion Fung MD on 02/18/2022 2:33 PM PDT Station ID: [id number]
--- NOTE | 2022-02-18 14:35 | XRAY Report ---
PROCEDURE: Foot 3 View LT INDICATIONS: Trauma TECHNIQUE: 3 views of the foot were acquired. COMPARISON: None FINDINGS: Bones: No fractures or dislocations. No suspicious bony lesions. Well-defined plantar calcaneal en thesophyte is seen. Soft tissues: No tibiotalar joint effusion. Achilles tendon appears normal. IMPRESSION: No gross acute left foot fracture or dislocation. Reviewed by: Ion Fung MD on 02/18/2022 2:34 PM PDT Approved by: Ion Fung MD on 02/18/2022 2:34 PM PDT Station ID: [id number]
--- NOTE | 2022-02-18 15:30 | ED Physician Documentation ---
PD HPI LOWER EXT INJURY - Stated complaint Stated Complaint: LT FT INJ - Chief complaint Chief Complaint: Trauma Ext - History obtained from History obtained from: Patient - Additional information Additional information: The patient comes to the emergency department chief complaint of left foot and ankle pain after a twisting injury. She states she was chasing her dog when she tripped over a wood pile and fell onto her foot. She has had some pain and swelling since this happened this afternoon. No other injuries or complaints. She has chronic sensory deficit in her feet which is at baseline. Review of Systems Ten Systems: 10 systems reviewed and negative Constitutional: reports: Reviewed and negative Eyes: reports: Reviewed and negative Ears: reports: Reviewed and negative Nose: reports: Reviewed and negative Throat: reports: Reviewed and negative Cardiac: reports: Reviewed and negative Respiratory: reports: Reviewed and negative GI: reports: Reviewed and negative : reports: Reviewed and negative Skin: reports: Reviewed and negative Musculoskeletal: reports: Joint pain, Joint swelling Neurologic: reports: Reviewed and negative Psychiatric: reports: Reviewed and negative Endocrine: reports: Reviewed and negative Immunocompromised: reports: Reviewed and negative PD PAST MEDICAL HISTORY - Past Medical History Psych: Anxiety Musculoskeletal: Chronic back pain, Other (previous back surgery L4-5.) - Past Surgical History Past Surgical History: No - Present Medications Home Medications: Ambulatory Orders Medication Instructions Recorded Confirmed Lisdexamfetamine Dimesylate 50 mg PO DAILY 02/18/22 02/18/22 [Vyvanse] Sertraline HCl 150 mg PO DAILY 02/18/22 02/18/22 - Allergies Allergies/Adverse Reactions: Allergies Allergy/AdvReac Type Severity Reaction Status Date / Time No Known Drug Allergies Allergy Verified 02/18/22 14:04 - Social History Does the pt smoke?: No Smoking Status: Never smoker Does the pt drink ETOH?: No Does the pt have substance abuse?: No - POLST Patient has POLST: No PD ED PE NORMAL - Vitals Vital signs reviewed: Yes - General General: Alert and oriented X 3, No acute distress, Well developed/nourished - HEENT HEENT: Atraumatic, PERRL, EOMI, Moist mucous membranes - Neck Neck: Supple, no meningeal sign - Cardiac Cardiac: Strong equal pulses - Respiratory Respiratory: No respiratory distress - Derm Derm: Normal color, Warm and dry, No rash - Extremities Extremities: No deformity, Other (Mild edema over the anterior talofibular ligament on the left. Tenderness same area.) - Neuro Neuro: Alert and oriented X 3, group fitness manager 2-12 intact, Normal speech - Psych Psych: Normal mood, Normal affect Results - Vitals Vitals: Vital Signs - 24 hr 02/18/22 14:02 Temperature 36.5 C Heart Rate 87 Respiratory 16 Rate Blood Pressure 125/88 H O2 Saturation 99 Oxygen O2 Source Room air - Rads (name of study) Left ankle x-ray series Radiology: Final report received, EMP read indepedently, See rad report (Negative) Left foot x-ray series Radiology: Final report received, EMP read indepedently, See rad report (Negative) PD MEDICAL DECISION MAKING - ED course Complexity details: reviewed results, re-evaluated patient, considered differential, d/w patient ED course: The patient had x-ray series of both her left ankle and left foot and both of these were negative. The patient has been given an air splint. We have discussed symptomatic management at home as well as the usual indications for return. Departure - Departure Disposition: 01 Home, Self Care Clinical Impression: Left ankle sprain Qualifiers: Encounter type: initial encounter Involved ligament of ankle: anterior talofibular ligament Qualified Code(s): S93.492A - Sprain of other ligament of left ankle, initial encounter Condition: Stable Instructions: ED Sprain Ankle Comments: Your x-ray series of both the foot and ankle are negative. You have most likely sprained the ankle, based on the history of injury and the findings on exam. You have been fitted with an air splint, which you may wear as needed. You may bear weight as tolerated but please do not do anything that makes the ankle hurt worse. You may use ibuprofen and Tylenol as needed for the pain and also, please ice and elevate the ankle whenever possible to help with inflammation and swelling. You may follow-up with your primary doctor for further concerns. Discharge Date/Time: 02/18/22 15:47
== END 2022-02-18 15:47 | disposition home or self-care (01) ==
LOC: ED 13:56
DX: S93.492A Sprain of other ligament of left ankle, initial encounter (principal); W01.0XXA Fall on same level from slipping, tripping and stumbling without subsequent striking against object, initial encounter
CPT/HCPCS: 99282; 99283

== ENCOUNTER 2022-09-09 08:00 | Outpatient (CLI) | payer OTHER ==
[2022-09-11 19:35] LABS: BACTERIAL VAGINOSIS DNA NEGATIVE (NEGATIVE); CANDIDA KRUSEI DNA NEGATIVE (NEGATIVE); TRICHOMONAS VAGINALIS DNA NEGATIVE (NEGATIVE)
[2022-09-11 19:36] LABS: CANDIDA GLABRATA DNA NEGATIVE (NEGATIVE); CANDIDA GROUP DNA NEGATIVE (NEGATIVE)
== END 2022-09-09 23:59 | disposition home or self-care (01) ==
LOC: LAB.WC 08:00
PROVIDERS: ATTEND Obstetrics & Gynecology
DX: B37.9 Candidiasis, unspecified (principal)
CPT/HCPCS: 81514

== ENCOUNTER 2022-10-10 12:26 | Outpatient (CLI) | payer OTHER ==
--- NOTE | 2022-10-11 09:48 | Ultrasound Report ---
LIMITED ULTRASOUND OF RIGHT BREAST: 10/10/2022 CLINICAL: Occasional right breast pain. Comparison is made to exams dated: 10/10/2022 mammogram - [facility] and 09/08/2020 [facility]. Color flow ultrasound of the right breast 5-9 o'clock region was performed. De Santiago scale images of the real-time examination were reviewed. No significant abnormalities were seen sonographically in the right breast in the region of pain. IMPRESSION: NEGATIVE There is no sonographic evidence of malignancy. No mass or cyst in the region of pain. Exam findings were conveyed to the patient. Patient is advised to monitor for significant change. Cli nical follow-up as needed. A 1 year screening mammogram is recommended. This exam was interpreted at Station ID: [id number]. Electronically Signed By: Attila Berger M.D. slc/:10/10/2022 13:43:38 Ultrasound BI-RADS: 1 Negative BI-RADS CATEGORY: (1) - 1 Mammogram [id number] 1 year screening LATERALITY: (B)
--- NOTE | 2022-10-11 09:48 | Mammography Report ---
BILATERAL DIGITAL DIAGNOSTIC MAMMOGRAM 3D/2D: 10/10/2022 CLINICAL: Diffuse right breast pain. Baseline exam. No prior exams were available for comparison. Both breasts are heterogeneously dense, which may obscure small masses (category c / 51-75% glandular tissue). No significant masses, calcifications, or other findings are seen in either breast. IMPRESSION: INCOMPLETE: NEEDS ADDITIONAL IMAGING EVALUATION No mammographic evidence of malignancy. A targeted ultrasound is recommended and will immediately follow. Based on Tyrer-Cuzick model (a risk assessment model), the patient's lifetime risk is 33.2% and her 1 0 year risk is 3.5%. If a patient has an elevated risk, a more comprehensive evaluation should be con sidered and/or a referral to a genetic counselor. The [employer], [employer], and NCCN Guidelines advise the consideration of Breast MRI as an adjunct to screening mammog esther in patients whose "Lifetime risk to develop breast cancer" is 20% or higher. This exam was interpreted at Station ID: [id number]. NOTE: For mammograms, a report in lay terms will be sent to the patient. Approximately 15% of breast malignancies will not be visualized mammographically. In the management of a palpable breast mass, a negative mammogram must not discourage biopsy of a clinically suspicious lesion. Electronically Signed By: Attila Berger M.D. slc/:10/10/2022 13:12:22 ACR BI-RADS Category 0: Incomplete 3340F PARENCHYMAL PATTERN: (D) - The breast(s) demonstrate(s) heterogeneously dense fibroglandular parheidey ma. BI-RADS CATEGORY: (0) - 0 Ultrasound [id number] Immediate follow-up LATERALITY: (B)
== END 2022-10-10 12:27 | disposition home or self-care (01) ==
LOC: DI 12:26
PROVIDERS: ATTEND Obstetrics & Gynecology
DX: N64.4 Mastodynia (principal)